=== PATIENT | male | born 1945 | race Caucasian/White ===

== ENCOUNTER → 2017-02-25 | Outpatient (CLI) | payer BC ==
[~2017-02-25] MED LIST: ATEN25TA PO; GLC500 PO; LISI20TA3 PO; MECL1TAB42 PO; SITA100T3 PO; WARF7.5T PO; meclizine
[2017-02-25 12:51] VITALS: BP 100/48; PULSE 54; TEMP 36.9; O2SAT 96
--- NOTE | 2017-02-26 08:05 | Radiation Oncology Follow-Up ---
Radiation Oncology Follow-Up Date of Visit Feb 25, 2017. Reason For Visit Annual follow-up Radiation Completion Date 05/07/2006 Diagnosis (1) Prostate cancer Status: Resolved Onset Date: ~ 2002 Permanent Comment: Adenocarcinoma prostate, presenting PSA 4, clinical stage T2 Status post biopsies revealing Neto 3+3 Status post prostatectomy, pathologic stage [id number], Neto score of 2002 Rising PSA Status post 4 months of hormonal suppression Status post completion of salvage radiation utilizing IMRT completed 05/07/2006 Last Edited By: Poonam Hartman on Jan 31, 2015 17:01 Interim History He is been doing well from urinary standpoint. Today he gave an AUA score 1. He completed and expanded prostate cancer index composite for clinical practice and gave a score of 0 of 12 in urinary incontinence symptoms. He gave a score of 0 of 12 and urinary irritation symptoms. He gave a score of one of 12 in bowel symptoms. He gave a score of 4 of 12 and sexual symptoms. He gave a score of one of 12 and hormonal vitality symptoms. His total was 5 of 60. Last year he had a PSA at [facility] in [place]. That was found to be 0.3 on 02/20/2016. He continues to have issues with periodic lightheadedness. His followed by his family physician. Allergies Coded Allergies: Latex1 -Allergic Contact Dermititis (Verified Allergy, Mild, ITCHES IF POWDER GLOVES ARE USED, 06/30/11) Penicillins (Verified Allergy, Unknown, 09/21/09) Home Medications Scheduled Atenolol (Tenormin), 25 MG PO QAM Lisinopril (Prinivil), 20 MG PO DAILY Metformin Hcl (Glucophage *), 2 TAB PO BIDM Sitagliptin Phosphate (Januvia), 100 MG PO QAM Warfarin Sodium (Coumadin), 5.5 MG PO DIRECTED Scheduled PRN Meclizine Hcl (Meclizine Hcl), 1 TAB PO TID PRN for Dizziness or Vertigo Review of Systems Gastrointestinal: Symptoms: WNL, Diarrhea GI Comments: Diarrhea last 6 months - attributes to metformin Oral: Symptoms: No Problems Respiratory: Symptoms: WNL Urinary: Symptoms: WNL Skin: Symptoms: No Problems Physical Exam Vital Signs Date Time Temp Pulse Resp B/P (MAP) Pulse Ox O2 Delivery O2 Flow Rate FiO2 02/25/17 12:51 36.9 54 16 100/48 96 Fatigue: None General Appearance: no apparent distress Eyes: normal inspection, EOMI ENT: normal ENT inspection, hearing grossly normal Neck: no adenopathy Respiratory/Chest: lungs clear, no respiratory distress, no accessory muscle use Cardiovascular: regular rate, rhythm, no gallop, no murmur Abdomen: non tender, soft, no organomegaly Anal / Rectum: Normal sphincter tone. Prostate bed is flat. No rectal masses and no rectal bleeding. Extremities: no pedal edema Neurologic/Psychiatric: no motor/sensory deficits, alert, normal mood/affect Skin: warm/dry Laboratory Studies Test 02/25/17 13:33 Prostate Specific Antigen 0.485 ng/ml (0.000-4.000) Assessment & Plan Plan: A PSA was drawn today prior to examination. The patient will be notified as to results. His blood pressure was rechecked and was 150/73. He will see his family physician in regards to blood pressure fluctuations. He'll check his pressures at home. The PSA was found a 0.485. This is increased since last year. This showed minimal slow increase. This was reviewed with Dr. Camacho and feels that he can continue to be followed annually. He'll continue regular follow-up with his primary care physician and piercer. Total Time In Follow-Up I spent 25 minutes speaking to the patient performing examination. I spent 15 minutes reviewing information in completing this note. Copy To Dr. Andrade
== END | disposition home or self-care (01) ==
LOC: C.ONC 12:16
PROVIDERS: ATTEND Physician Assistant Medical
DX: Z08 Encounter for follow-up examination after completed treatment for malignant neoplasm (principal); Z92.3 Personal history of irradiation; Z85.46 Personal history of malignant neoplasm of prostate

== ENCOUNTER 2022-09-23 15:11 | Observation (INO) ==
--- NOTE | 2022-09-23 15:35 | ED Triage Note ---
Date of Service September 23, 2022 History of Present Illness This patient was briefly evaluated while in triage. An abbreviated physical exam was performed. This patient is a 76-year-old Male with past medical history of HTN, lipids, afib on Eliquis, DM who presents to the ED for evaluation of chest fullness/heaviness, across entire chest denies pain, started a week ago denies SOB worse with activity/exertion +LE edema compliant with medications Physical Exam GENERAL: NAD CARDIOVASCULAR: RRR RESPIRATORY: CTA ABDOMEN: BS x 4. Nontender to palpation. Initial orders for labs and / or imaging were placed and patient was placed in the waiting area until a bed is available. Please see further documentation for the full ED course.
--- NOTE | 2022-09-23 16:21 | XRay Report ---
XR chest 1V portable CLINICAL HISTORY: Chest tightness/heaviness COMPARISON STUDY: Chest radiograph May 13, 2022. FINDINGS: Several old, healed right-sided rib fractures are incidentally noted. Lung volumes are norm al. Lungs are clear. There is no pneumothorax or pleural effusion. Mild cardiomegaly. Mediastinal con tours are normal. There is no evidence for pulmonary edema. IMPRESSION: No acute cardiopulmonary findings. ACT 112: Negative or not required by law. Electronically signed by: Kel Juarez M.D. 09/23/2022 4:20 PM
[2022-09-23 16:38] LABS: Basophils # (auto) 0.04 K/uL (0-0.2); Basophils % (auto) 1.1 %; Eosinophils # (auto) 0.27 K/uL (0-0.50); Eosinophils % (auto) 7.3 %; Hematocrit (blood only) 37.8 % (42.0-52.0); Hemoglobin 12.9 g/dl (14.0-18.0); Lymphocytes # (auto) 0.98 K/uL (1.2-3.4); Lymphocytes % (auto) 26.5 %; Mean Corpuscular Hemoglobin 31.5 pg (25.0-34.0); Mean Corpuscular Hgb Conc 34.1 g/dL (32.0-36.0); Mean Corpuscular Volume 92.4 fL (80.0-100.0); Mean Platelet Volume 10.2 fL (9.4-12.4); Monocytes # (auto) 0.48 K/uL (0.11-0.59); Neutrophils # (auto) 1.93 K/uL (1.40-6.50); Neutrophils % (auto) 52.1 %; Platelet Count 135 K/uL (130-400); RDW Coefficient of Variation 13.2 % (11.5-14.5); RDW Standard Deviation 44.5 fL (36.4-46.3); Red Blood Count 4.09 M/uL (4.70-6.10)
[2022-09-23 16:56] LABS: Albumin Globulin Ratio 1.3 (0.9-2); Albumin Level 4.1 gm/dl (3.4-5.0); BUN Creatinine Ratio 17.2 (10-20); Bilirubin,Total 0.5 mg/dl (0.2-1.0); Creatinine Clr Calc Pharmacy 55.1 ml/min; Est GFR (African American) 63.5 ml/min; Est GFR (Non-African American) 54.8 ml/min; Globulin 3.2 gm/dl (2.5-4.0); Potassium 4.3 mmol/L (3.5-5.1); Total Protein 7.3 gm/dl (6.0-8.3)
[2022-09-23 17:01] LABS: Partial Thromboplastin Ratio 0.9; Partial Thromboplastin Time 23.9 Seconds (21.0-31.0); Prothrombin Time 11.1 Seconds (9.0-12.0); Troponin I High Sensitivity 5.3 pg/ml (0-20)
--- NOTE | 2022-09-23 17:18 | Emergency Department Note ---
Impression & Plan ZHONG (dyspnea on exertion), Chronic anticoagulation, PAF (paroxysmal atrial fibrillation), Diabetes mellitus ED Provider Note Provider: Percy Reyna MD DATE OF SERVICE: 09/23/2022 CHIEF COMPLAINT: Chest tightness, dyspnea on exertion HISTORY OF PRESENT ILLNESS: Patient is a 76-year-old gentleman history of diabetes, prostate cancer, paroxysmal atrial fibrillation on Eliquis, and CKD presenting here today reporting over the past week or so. Denies visible pain. Denies shortness of breath at rest but some shortness of breath with exertion with a little bit of increase swelling of the legs. Patient states it feels similar to when he has had cardiac chemical stress test in the past and that sensation. Denies a history of cardiac stents. Has been on antibiotics related to tongue and throat infection states this has not improved much and has a bit of a sore on the left posterior tongue. Denies lightheadedness or palpitations. Follows with Dr. Quintero of cardiology and states been sometime since he had any cardiac stress testing. PAST MEDICAL HISTORY: As noted above MEDICATIONS: Reviewed home medications includes Eliquis and states compliance. SOCIAL HISTORY: Non-smoker, lives at home PHYSICAL EXAM: GENERAL: alert and oriented in no acute distress on stretcher Head: normocephalic and atraumatic EYES: No injection, discharge or icterus. NECK: Trachea midline. ENT: Mucous membranes pink and moist. Pharynx without erythema or exudate. LUNGS: Airway patent. No retractions. Breath sounds clear with good air entry bilaterally. HEART: Regular rate and rhythm. No chest wall tenderness ABDOMEN: Soft and non-tender, without guarding or rebound. SKIN: Acyanotic, warm, dry, without rashes EXTREMITIES: Without swelling, tenderness or deformity NEUROLOGICAL: No focal deficits. No aphasia. No facial droop or slurred speech. Normal strength and tone in the extremities. Sensation to gross touch normal. Ambulatory. EK bpm sinus rhythm with PAC & Right bundle branch block noted. No acute ST segment elevation or significant depression. QTc 432 CONTINUOUS CARDIAC MONITORING: was ordered and showed a heart rate of 60s-80s bpm in sinus rhythm with PACs Patient's laboratory studies and imaging reviewed. Differential includes Cardiac ischemia, aortic dissection, pulmonary embolism, pneumothorax, pneumonia, pericarditis, myocarditis, esophageal rupture, GERD, cholecystitis, pancreatitis, musculoskeletal, as well as other pathologies. IMPRESSION/MEDICAL DECISION MAKING: Patient with some exertional shortness of breath as well as chest tightness. Us e of Eliquis lowers my suspicion for VTE. A little bit of leg swelling but does not appear grossly fluid overloaded. Denies trauma or significant recent travel. Patient's blood work completed here with slight leukopenia and slight anemia. No significant severe electrolyte abnormality or signs of acute renal dysfunction. No evidence hepatitis based on labs. Does not seem consistent with pancreatitis. High sensitivity troponin completed here within normal limits at 5. The exertional component to his symptoms are concerning however. Chest x-ray per report and my review without significant abnormality such as pneumonia or pulmonary edema. Discussed with him and his at bedside the f indings his moderate risk heart score. Shared decision making discussed with the hospitalist here for further observation and further cardiac evaluation. DIAGNOSIS: Dyspnea on exertion, long-term anticoagulation for atrial fibrillation DISPOSITION: Hospitalist will evaluate Patient was agreeable with this plan. Past Med/Surg History Medical History Atrial fibrillation follows with Dr. Quintero; on Eliquis Carotid stenosis last ultrasound approx 8 years ago [facility] Chronic renal insufficiency DM type 2 (diabetes mellitus, type 2) History of prostate cancer dx 5-7 years ago; sx + radiation Hypertension Osteoarthritis Spinal stenosis Surgical History History of cardiac cath > 10 years ago - [facility] - no stents History of cholecystectomy History of colonoscopy History of left hip replacement History of left knee replacement History of lumbar surgery History of open reduction and internal fixation (ORIF) procedure LLE History of prostate biopsy History of prostatectomy History of right cataract extraction History of right hip replacement Family History Other No family history of adverse response to anesthesia Social History Smoking Status: Never smoker Second Hand Exposure: No; Hx Alcohol Use: No Hx Substance Use: No Preferred Language: Welsh Communication Ability: Effective Parts Department Manager Required: No Beliefs That Will Affect Care: None Current Living Situation: Spouse Feels Safe at Home: Yes Assistive Devices: Glasses Allergies Allergies Allergy/AdvReac Type Severity Reaction Status Date / Time Penicillins Allergy Intermediate jaundice Verified 09/23/22 17:40 latex Allergy Mild ITCHY IF Verified 09/23/22 17:40 POWDER GLOVES ARE USED - rash Home Meds Home Medications Medication Instructions Recorded Confirmed carvedilol 3.125 mg tablet 3.125 mg PO BID 09/23/22 09/23/22 doxycycline hyclate 100 mg capsule 100 mg PO BID 09/23/22 09/23/22 lisinopril 10 mg tablet 10 mg PO DAILY 09/23/22 09/23/22 metformin 500 mg tablet,extended 500 mg PO BID 09/23/22 09/23/22 release 24 hr Previous Rx's Medication Instructions Recorded apixaban 5 mg tablet (Eliquis) 5 mg PO BID #180 tabs 06/27/22 Results & Data (ED) Vital Signs Vital Signs - 24 hr 09/23/22 15:31 09/23/22 17:17 09/23/22 17:17 Temperature 36.6 C Temperature Source Temporal Artery Scan Pulse Rate 60 Pulse Rate [Apical] 61 Pulse Rhythm Regular Respiratory Rate 18 18 Respiratory Effort / Characteristics Non-Labored Spontaneous Respiratory Depth Normal Blood Pressure 182/92 H Blood Pressure [Left Arm] 188/92 H Blood Pressure Mean 122 Blood Pressure Mean [Left Arm] 124 Blood Pressure Position [Left Arm] Pulse Oximetry 98 96 99 Oxygen Delivery Method Room Air Room Air Room Air Sepsis Recent Fever Within 48 Hours No Sepsis New/Unexplained Change in Mental Status No Sepsis Action Taken by Nursing No Action Required 09/23/22 17:19 09/23/22 19:42 Temperature Temperature Source Pulse Rate Pulse Rate [Apical] 63 Pulse Rhythm Respiratory Rate 18 Respiratory Effort / Characteristics Respiratory Depth Blood Pressure Blood Pressure [Left Arm] 156/84 H Blood Pressure Mean Blood Pressure Mean [Left Arm] 108 Blood Pressure Position [Left Arm] Lying Pulse Oximetry 99 99 Oxygen Delivery Method Room Air Room Air Sepsis Recent Fever Within 48 Hours Sepsis New/Unexplained Change in Mental Status Sepsis Action Taken by Nursing Laboratory Data 09/23/22 16:11 09/23/22 16:11 Lab Results 09/23/22 09/23/22 09/23/22 Range/Units 16:11 16:11 16:11 WBC 3.70 L (4.8-10.8) K/ul RBC 4.09 L (4.70-6.10) M/uL Hgb 12.9 L (14.0-18.0) g/dl Hct 37.8 L (42.0-52.0) % MCV 92.4 (80.0-100.0) fL MCH 31.5 (25.0-34.0) pg MCHC 34.1 (32.0-36.0) g/dL RDW Std Deviation 44.5 (36.4-46.3) fL RDW Coeff of Raf 13.2 (11.5-14.5) % Plt Count 135 (130-400) K/uL MPV 10.2 (9.4-12.4) fL Immature Gran % (Auto) 0.0 % Neut % (Auto) 52.1 % Lymph % (Auto) 26.5 % Williams % (Auto) 13.0 % Eos % (Auto) 7.3 % Baso % (Auto) 1.1 % Neut # (Auto) 1.93 (1.40-6.50) K/uL Lymph # (Auto) 0.98 L (1.2-3.4) K/uL Williams # (Auto) 0.48 (0.11-0.59) K/uL Eos # (Auto) 0.27 (0-0.50) K/uL Baso # (Auto) 0.04 (0-0.2) K/uL Immature Gran # (Auto) 0.00 L (0.01-0.20) K/uL PT 11.1 (9.0-12.0) Seconds INR 1.0 (0.9-1.1) APTT 23.9 (21.0-31.0) Seconds PTT Ratio 0.9 Sodium 139 (136-145) mmol/L Potassium 4.3 (3.5-5.1) mmol/L Chloride 109 H (98-107) mmol/L Carbon Dioxide 28 (21-32) mmol/L Anion Gap 2 L (3-11) BUN 22 (6-23) mg/dl Creatinine 1.28 (0.6-1.4) mg/dl Est Cr Clr Drug Dosing 55.1 ml/min Est GFR ( Amer) 63.5 ml/min Est GFR (Non-Af Amer) 54.8 ml/min BUN/Creatinine Ratio 17.2 (10-20) Glucose 116 H (70-99(Fasting)) mg/dl POC Glucose (70-99) mg/dl Calcium 10.0 (8.5-10.1) mg/dl Total Bilirubin 0.5 (0.2-1.0) mg/dl AST 20 (13-39) U/L ALT 11 (7-52) U/L Alkaline Phosphatase 68 (34-104) U/L Troponin I High Sens 5.3 (0-20) pg/ml Total Protein 7.3 (6.0-8.3) gm/dl Albumin 4.1 (3.4-5.0) gm/dl Globulin 3.2 (2.5-4.0) gm/dl Albumin/Globulin Ratio 1.3 (0.9-2) SARS-CoV-2, RNA, NAAT (NEGATIVE) 09/23/22 09/23/22 Range/Units 20:37 Unknown WBC (4.8-10.8) K/ul RBC (4.70-6.10) M/uL Hgb (14.0-18.0) g/dl Hct (42.0-52.0) % MCV (80.0-100.0) fL MCH (25.0-34.0) pg MCHC (32.0-36.0) g/dL RDW Std Deviation (36.4-46.3) fL RDW Coeff of Raf (11.5-14.5) % Plt Count (130-400) K/uL MPV (9.4-12.4) fL Immature Gran % (Auto) % Neut % (Auto) % Lymph % (Auto) % Williams % (Auto) % Eos % (Auto) % Baso % (Auto) % Neut # (Auto) (1.40-6.50) K/uL Lymph # (Auto) (1.2-3.4) K/uL Williams # (Auto) (0.11-0.59) K/uL Eos # (Auto) (0-0.50) K/uL Baso # (Auto) (0-0.2) K/uL Immature Gran # (Auto) (0.01-0.20) K/uL PT (9.0-12.0) Seconds INR (0.9-1.1) APTT (21.0-31.0) Seconds PTT Ratio Sodium (136-145) mmol/L Potassium (3.5-5.1) mmol/L Chloride (98-107) mmol/L Carbon Dioxide (21-32) mmol/L Anion Gap (3-11) BUN (6-23) mg/dl Creatinine (0.6-1.4) mg/dl Est Cr Clr Drug Dosing ml/min Est GFR ( Amer) ml/min Est GFR (Non-Af Amer) ml/min BUN/Creatinine Ratio (10-20) Glucose (70-99(Fasting)) mg/dl POC Glucose 108 H (70-99) mg/dl Calcium (8.5-10.1) mg/dl Total Bilirubin (0.2-1.0) mg/dl AST (13-39) U/L ALT (7-52) U/L Alkaline Phosphatase (34-104) U/L Troponin I High Sens (0-20) pg/ml Total Protein (6.0-8.3) gm/dl Albumin (3.4-5.0) gm/dl Globulin (2.5-4.0) gm/dl Albumin/Globulin Ratio (0.9-2) SARS-CoV-2, RNA, NAAT NEGATIVE (NEGATIVE) Imaging Data Radiologist's Impression: Chest X-Ray 09/23/22 15:36 XR chest 1V portable CLINICAL HISTORY: Chest tightness/heaviness COMPARISON STUDY: Chest radiograph May 13, 2022. FINDINGS: Several old, healed right-sided rib fractures are incidentally noted. Lung volumes are normal. Lungs are clear. There is no pneumothorax or pleural effusion. Mild cardiomegaly. Mediastinal contours are normal. There is no evidence for pulmonary edema. IMPRESSION: No acute cardiopulmonary findings. ACT 112: Negative or not required by law. Electronically signed by: Kel Juarez M.D. 09/23/2022 4:20 PM Discharge Plan Visit Data Chief Complaint: Cardiac Assessment Stated Complaint: CHEST TIGHTNESS/FULLNESS ED Provider: Percy Reyna Discharge Problem: ZHONG (dyspnea on exertion), Chronic anticoagulation, PAF (paroxysmal atrial fibrillation), Diabetes mellitus Patient Disposition: Being Evaluated by Hospitalist Forms Stand Alone Forms: [facility] [employer] Prescriptions Prescriptions: No Action Eliquis 5 mg tablet 5 mg PO BID Qty: 180 3RF doxycycline hyclate 100 mg capsule 100 mg PO BID Rx Instructions: STARTED 09/19/22 FOR 10 DAYS. carvedilol 3.125 mg tablet 3.125 mg PO BID lisinopril 10 mg tablet 10 mg PO DAILY metformin 500 mg tablet extended release 24 hr 500 mg PO BID Referrals Referrals: Lissett Portillo PA-C [Primary Care Provider] -
--- NOTE | 2022-09-23 19:08 | History & Physical Report ---
Date of Service September 23, 2022 Assessment & Plan (1) ZHONG (dyspnea on exertion): Plan: -Admit to med tele -The patient is currently afebrile, hemodynamically stable, and stable on RA -The patient's history of his recent symptoms is concerned for possible ischemia with exertion, he is currently asymptomatic at rest -Initial high sensitivity trop is WNL and his ECG is without acute ST segment or T-wave changes -Will repeat another high sensitivity trop STAT and then monitor q6h overnight, monitor on tele and pulse oximetry -Will obtain TTE tomorrow for further evaluation -Cardiology consult placed for assistance with continue workup and assessment -AM CBC and BMP (2) Tongue abnormality: Plan: -Patient noted to have a small, white lesion on the lateral aspect of his tongue -The lesion does not present or appear like that of leukoplakia or a fungal infection -It is likely an aphthous ulcer which appears to be improving, continue to monitor for now (3) Diabetes mellitus: Plan: -Hold metformin -Monitor BSG ACHS , goal range is 110-140 -Will start with lantus, 5 units BID, correction factor of 45 and carb ratio of 16 -DMII diet -Adjust regimen as needed (4) PAF (paroxysmal atrial fibrillation): Plan: -Stable -Continue carvedilol and eliquis (5) Hyperlipidemia: Plan: -Statin intolerant (6) Hypertension: Plan: -Stable -Continue lisinopril and carvedilol Plan The patient was discussed with Dr. Laureano at the time of the admisison History of Present Illness Chief Complaint: ZHONG/chest discomfort Primary Care Provider: Lissett Lott is a 76 year old male with a PMH significant for paroxysmal afib on eliquis, HTN, hyperlipidemia, intolerance to statins, DM II, prostate cancer in 2002, and PVD who presented to the [facility] ED on 09/23/22 for ZHONG/chest discomfort on exertion. In the ED the patient was found to be afebrile, hemodynamically stable and stable on RA. Labs were remarkable for a CBC with WBC of 3.70, stable Hgb of 12.9, cr of 1.28 (appears to be his baseline), chloride of 109 otherwise stable electrolytes, AG of 2, initial high sensitivity trop of 5.3 and covid negative. Chest xray was read as "No acute cardiopulmonary findings.". At the time of the exam the patient was resting in bed in no acute distress. He states over the past few weeks he has started to noticed an odd feeling in his chest with exertion. It's difficult for him to explain but he states it feels the same as when he had a stress echo completed years ago. He describes it as almost a warm sensation and stays in the substernal region, it does not radiate. He states that the sedation resolves with rest and has not occurred at rest. He follows with Dr. Quintero and called to schedule an appointment at the [place] office yesterday. There was a miscommunication and the appointment was in [place] so he was unable to make it. He states that he had a stress echo "years ago" but denies any previous heart attacks or previous stent placements. When asked why he was placed on Doxycycline he states that he started to experience a sore throat, a white growth on the right side of his tongue, and swollen "glands" in the submandibular region. He went to the acute care center in [place] where he had a negative strep test. They started him on the Doxycycline at that time and he feels as though his symptoms has slightly improved since then. He denies recent fevers, chills, changes in vision, hearing, taste, and smell, current chest pain, SOB, cough, abdominal pain, nausea, vomiting, dysuria, hematuria, and recent trauma. We discussed code status, he wishes to be a full code. He would want his to make decisions for him if he could not make them himself. Please refer to Dr. Laureano's attestation for any changes to the treatment plan. Allergies Allergy/AdvReac Type Severity Reaction Status Date / Time Penicillins Allergy Intermediate jaundice Verified 09/23/22 17:40 latex Allergy Mild ITCHY IF Verified 09/23/22 17:40 POWDER GLOVES ARE USED - rash Home Medications Medication Instructions Recorded Confirmed Type apixaban 5 mg tablet (Eliquis) 5 mg PO BID #180 tabs 06/27/22 09/23/22 Rx carvedilol 3.125 mg tablet 3.125 mg PO BID 09/23/22 09/23/22 History doxycycline hyclate 100 mg capsule 100 mg PO BID 09/23/22 09/23/22 History lisinopril 10 mg tablet 10 mg PO DAILY 09/23/22 09/23/22 History metformin 500 mg tablet,extended 500 mg PO BID 09/23/22 09/23/22 History release 24 hr Past Med/Surg History Medical History Atrial fibrillation follows with Dr. Quintero; on Eliquis Carotid stenosis last ultrasound approx 8 years ago [facility] Chronic renal insufficiency DM type 2 (diabetes mellitus, type 2) History of prostate cancer dx 5-7 years ago; sx + radiation Hypertension Osteoarthritis Spinal stenosis Surgical History History of cardiac cath > 10 years ago - [facility] - no stents History of cholecystectomy History of colonoscopy History of left hip replacement History of left knee replacement History of lumbar surgery History of open reduction and internal fixation (ORIF) procedure LLE History of prostate biopsy History of prostatectomy History of right cataract extraction History of right hip replacement Family History Other No family history of adverse response to anesthesia Social History Smoking Status: Never smoker Second Hand Exposure: No; Hx Alcohol Use: No Hx Substance Use: No Preferred Language: Venezuelan Communication Ability: Effective Soup Person Required: No Beliefs That Will Affect Care: None Current Living Situation: Spouse Current Living Situation Comment: with Other Information That Helps Us Care for You: No Feels Safe at Home: Yes Safety Concerns: Feels Safe At This Time Assistive Devices: None Assistive Devices Comment: reading glasses Review of Systems Review of Systems: Denies current fever, chills, headache, changes in vision, hearing, taste, and smell, chest pain, SOB, cough, abdominal pain, nausea, vomiting, diarrhea, hematemesis, melena, dysuria, hematuria, and recent falls. All systems have been reviewed and are otherwise negative. Physical Exam Physical Exam: Physical Exam: General: In no acute distress, stated age, well-nourished, good hygiene HEENT: Normocephalic, atraumatic, no scleral icterus, pupils around round, symmetrical, and reactive to light, moist mucus membranes, patient is without erythema in the oropharynx, small white lesion noted on the right/lateral aspect of the tongue, patient noted to have enlarged submandibular lymph nodes, trachea midline, no thyromegaly Chest/Pulm: No respiratory distress, symmetrical chest expansion, clear breath sounds throughout Cardiac: RRR, no murmurs noted Abdomen: Negative for ascites and bruising, normoactive bowel sounds, soft, non-tender to palpation throughout Musculoskeletal: Symmetrical and without signs of acute trauma, upper and lower extremities with full ROM, no atrophy, spasticity, or flaccidity Extremities: Radial, dorsalis pedis, and posterior tibial pulses are intact and symmetrical, no edema noted in the BL LE's Skin: Warm, dry, no rashes , lesions, or scars noted Neuro: Alert and oriented to person, place, month, year, and president, no focal defects, CN II-XII tested and intact, Psych: No acute distress, calm and cooperative during the exam Results & Data Results & Data ([facility]) Vital Signs (Past 12 Hours) Vital Signs Temp Pulse Pulse Resp BP BP Pulse Ox 09/23/22 17:19 99 09/23/22 17:17 61 18 188/92 H 99 09/23/22 17:17 96 09/23/22 15:31 36.6 C 60 18 182/92 H 98 O2 Del Method 09/23/22 17:19 Room Air 09/23/22 17:17 Room Air 09/23/22 17:17 Room Air 09/23/22 15:31 Room Air Laboratory Results Abnormal lab results 09/23/22 09/23/22 Range/Units 16:11 16:11 WBC 3.70 L (4.8-10.8) K/ul RBC 4.09 L (4.70-6.10) M/uL Hgb 12.9 L (14.0-18.0) g/dl Hct 37.8 L (42.0-52.0) % Lymph # (Auto) 0.98 L (1.2-3.4) K/uL Immature Gran # (Auto) 0.00 L (0.01-0.20) K/uL Chloride 109 H (98-107) mmol/L Anion Gap 2 L (3-11) Glucose 116 H (70-99(Fasting)) mg/dl Diagnostic Findings Chest X-Ray 02/07/23 15:36 XR chest 1V portable CLINICAL HISTORY: Chest tightness/heaviness COMPARISON STUDY: Chest radiograph May 13, 2022. FINDINGS: Several old, healed right-sided rib fractures are incidentally noted. Lung volumes are normal. Lungs are clear. There is no pneumothorax or pleural effusion. Mild cardiomegaly. Mediastinal contours are normal. There is no evidence for pulmonary edema. IMPRESSION: No acute cardiopulmonary findings. ACT 112: Negative or not required by law. Electronically signed by: Kel Juarez M.D. 09/23/2022 4:20 PM ECG Additional Comments: Sinus rhythm with Premature atrial complexes with Aberrant conduction Right bundle branch block Abnormal ECG When compared with ECG of 05-NOV-2012 14:33, Aberrant conduction is now Present Right bundle branch block is now Present Code Status & VTE Plan Code Status Full code VTE Prophylaxis Plan VTE Prophylaxis will be ordered: Yes Supervising Physician Co-Signing Physician Notes Patient seen and examined at time of admission, chart reviewed, case discussed with LILIA Curran and I agree with the assessment and plan as documented above. In brief, patient is a 76yo male presenting with ZHONG and chest discomfort noted on exertion. Symptoms have been ongoing for at least a week. He describes the sensation as "tightness". Presently feels well with no complaints On exam he is afebrile, HD stable, NAD Skin - intact, no rashes or lesions HEENT - MMM, Neck supple Heart - +S1/S2, regular, no m/r/g, no reproducible chest wall pain Lungs - CTA Abd - soft, NT/ND Ext - warm, well perfused, no clubbing/cyanosis or edema Labs and images reviewed Trop=5.3 EKG with no acute ischemic changes Assessment/Plan - 76yo male with history of PAF on Eliquis, HTN, HLP, DM -Admit to medical with telemetry -Monitor troponin -Cardiology consultation appreciated -Remainder of chronic medical conditions as above PG Care Time/CCT Total # of Minutes Spent Total Time Spent with Patient: Total time spent is greater than 50% in coordination of care (as documented) at patient's floor/unit and/or counseling patient: Coding [place] [address] INT INP/OBS CARE 3/75MIN Patient Type Established Medical Decision Making High Complexity Diagnoses ZHONG (dyspnea on exertion) R06.09 Tongue abnormality Q38.3 Diabetes mellitus E11.9 PAF (paroxysmal atrial fibrillation) I48.0 Hyperlipidemia E78.5 Hypertension I10
[2022-09-23] MEDS ORDERED: CARBOHYDRATES FOR HYPOGLYCEMIA PO PRN (19:20)
[2022-09-23] MEDS ORDERED: GLUCAGON FOR INJ 1 MG VIAL SQ PRN (19:20)
[2022-09-23] MEDS ORDERED: GLUCOSE 10 TAB/TUBE PO PRN (19:20)
[2022-09-23] MEDS ORDERED: DEXTROSE 50% 50 ML SYRINGE IV PRN (19:20)
[2022-09-23] MEDS ORDERED: GLUCOSE 40% GEL 15 GM TUBE PO PRN (19:20)
[2022-09-23] MEDS: LANTUS PER UNIT CHARGE SQ SCH (21:24)
[2022-09-23] MEDS: INSULIN ASPART PER UNIT SC SCH (21:24)
[2022-09-23] MEDS: carvediloL 3.125 MG TAB PO SCH (23:30)
[2022-09-23] MEDS: APIXABAN 5 MG TABLET PO SCH (23:30)
[2022-09-24 07:04] LABS: Hematocrit (blood only) 35.8 % (42.0-52.0); Hemoglobin 12.2 g/dl (14.0-18.0); Mean Corpuscular Hemoglobin 31.2 pg (25.0-34.0); Mean Corpuscular Hgb Conc 34.1 g/dL (32.0-36.0); Mean Corpuscular Volume 91.6 fL (80.0-100.0); Mean Platelet Volume 10.4 fL (9.4-12.4); Platelet Count 128 K/uL (130-400); RDW Coefficient of Variation 13.2 % (11.5-14.5); RDW Standard Deviation 43.6 fL (36.4-46.3); Red Blood Count 3.91 M/uL (4.70-6.10); White Blood Count 3.49 K/ul (4.8-10.8)
[2022-09-24 07:26] LABS: BUN Creatinine Ratio 18.2 (10-20); Calcium 9.6 mg/dl (8.5-10.1); Creatinine Clr Calc Pharmacy 58.1 ml/min; Est GFR (African American) 67.9 ml/min; Est GFR (Non-African American) 58.6 ml/min
[2022-09-24] MEDS: carvediloL 3.125 MG TAB PO SCH ×2 (07:29→21:00)
[2022-09-24 07:30] LABS: INR 1.1 (0.9-1.1); Prothrombin Time 11.7 Seconds (9.0-12.0)
[2022-09-24] MEDS: APIXABAN 5 MG TABLET PO SCH (07:30)
[2022-09-24] MEDS: lisinopril 10 MG TAB PO SCH (07:31)
--- NOTE | 2022-09-24 08:19 | XCELERA ---
[id number] \\[id number]
--- NOTE | 2022-09-24 08:36 | Electrocardiogram Report ---
Test Reason : Blood Pressure : / mmHG Vent. Rate : 071 BPM Atrial Rate : 071 BPM P-R Int : 152 ms QRS Dur : 132 ms QT Int : 398 ms P-R-T Axes : 017 -05 004 degrees QTc Int : 432 ms Sinus rhythm with Premature atrial complexes with Aberrant conduction Right bundle branch block Abnormal ECG When compared with ECG of 05-NOV-2012 14:33, Aberrant conduction is now Present Right bundle branch block is now Present Confirmed by Arjun Foster ([id number]) on 09/24/2022 8:36:03 AM Referred By: Confirmed By:Arjun Foster
[2022-09-24] MEDS: INSULIN ASPART PER UNIT SC SCH ×3 (09:14→17:22)
[2022-09-24] MEDS: LANTUS PER UNIT CHARGE SQ SCH (09:18)
[2022-09-24] MEDS ORDERED: ATROPINE SULFATE 0.1 MG/ML 10ML SYR IV ONE (11:00)
[2022-09-24] MEDS ORDERED: DOBUTamine HCL 12.5 MG/ML 20 ML VIAL IV ONE (11:00)
[2022-09-24] MEDS ORDERED: METOPROLOL TARTRATE 1 MG/ML VIAL IV ONE ×2 (11:00→11:24)
[2022-09-24] MEDS ORDERED: NITROGLYCERIN SL 0.4 MG/TAB TAB ONE (11:01)
[2022-09-24] MEDS ORDERED: ADENOSINE IV SOLN 3 MG/ML 2 ML VIAL IV ONE (11:24)
--- NOTE | 2022-09-24 13:54 | XCELERA ---
[id number] \\[id number]
--- NOTE | 2022-09-24 14:13 | Electrocardiogram Report ---
Test Reason : Blood Pressure : / mmHG Vent. Rate : 056 BPM Atrial Rate : 056 BPM P-R Int : 168 ms QRS Dur : 148 ms QT Int : 426 ms P-R-T Axes : 023 -19 -12 degrees QTc Int : 411 ms Sinus bradycardia Right bundle branch block Abnormal ECG When compared with ECG of 23-SEP-2022 16:07, Aberrant conduction is no longer Present Confirmed by Arjun Foster ([id number]) on 09/24/2022 2:12:52 PM Referred By: REFERRED SELF Confirmed By:Arjun Foster
[2022-09-24] MEDS ORDERED: NITROGLYCERIN SL 0.4 MG/TAB TAB SL PRN (14:51)
--- NOTE | 2022-09-24 15:23 | Hospitalist Progress Note ---
Date of Service September 24, 2022 Assessment & Plan (1) ZHONG (dyspnea on exertion): Plan: This appears to be due to crescendo angina. Cardiology consultation appreciated . Stress test today compromised by sustained ventricular tachycardia. He remains on Eliquis. Topical nitrates have been ordered. Sublingual nitroglycerin as needed. Awaiting cardiology recommendations regarding catheterization this admission (2) Tongue abnormality: Plan: Patient noted to have a small, white lesion on the lateral aspect of his tongue . Will need further outpatient monitoring (3) Diabetes mellitus: Plan: Holding metformin . ADA diet. Sliding scale coverage. Basal Lantus for now (4) PAF (paroxysmal atrial fibrillation): Plan: Currently in normal sinus rhythm. He is on Eliquis. Continue medications (5) Hyperlipidemia: Plan: Statin intolerant (6) Hypertension: Plan: Controlled. Currently on lisinopril and carvedilol (7) Crescendo angina: Plan: Stress test today compromised by sustained ventricular tachycardia. History is consistent with crescendo angina. Topical nitrates applied. Use sublingual nitroglycerin as needed. Continue other medications. Await cardiology recommendations regarding heart catheterization this admission. Plan Anticipate eventual discharge to home unless he needs transferred for coronary bypass procedure. Admission and Anticipated Discharge Date Admission Date: September 23, 2022 Subjective Alert and oriented. No current symptoms. He had sustained ventricular tachycardia during the stress test today. Symptoms are consistent with cresc endo angina. Topical nitrates ordered along with sublingual nitroglycerin as needed. He is on Eliquis amongst other medications. Awaiting cardiology recommendations regarding heart catheterization Review of Systems Review of Systems: Constitutional-no fever or chills ENT-no blurred vision, no double vision, no epistaxis, no sore throat Respiratory-no cough, no wheezing, no shortness of breath Cardiac-chest discomfort occurs with minimal exertion while walking GI-no nausea, vomiting, diarrhea, melena, hematochezia -no urinary retention, no urinary incontinence, no dysuria, no hematuria Musculoskeletal-no joint pain, no muscle tenderness Skin-no bruising, no rashes, no pruritus Neuro-no isolated weakness, no paresthesia, no weakness Psych-no depression, no anxiety Physical Exam Physical Exam: General-alert and oriented x3, no fevers, no chills HEENT-head atraumatic and normocephalic, pupils equal and reactive to light, extraocular muscles intact Neck-no lymphadenopathy or thyromegaly, trachea midline Chest-clear to auscultation percussion. No rales wheezing or rhonchi Cardiac-regular rate and rhythm, normal S1 and S2 Abdomen-normal bowel sounds, nontender, no hepatosplenomegaly Extremities-no cyanosis, clubbing, or edema Neuro-cranial nerves II through XII intact, motor and sensory function within normal limits, strength symmetrical , no focal deficits Psych-normal affect, normal mood Results & Data Results & Data ([facility]) Vital Signs (Past 12 Hours) Vital Signs Temp Pulse Pulse Resp BP Pulse Ox O2 Del Method 09/24/22 05:57 56 L 09/24/22 12:00 36.7 C 57 L 18 135/75 100 Room Air 09/24/22 07:34 36.7 C 62 173/90 H 98 Room Air Laboratory Results 09/24/22 06:30 09/24/22 06:30 PG Care Time/CCT Total # of Minutes Spent Total Time Spent with Patient: Total time spent is greater than 50% in coordination of care (as documented) at patient's floor/unit and/or counseling patient: Coding Level of Care Code 35122 SUB INP/OBS CARE 3/50MIN Diagnoses ZHONG (dyspnea on exertion) R06.09 Tongue abnormality Q38.3 Diabetes mellitus E11.9 PAF (paroxysmal atrial fibrillation) I48.0 Hyperlipidemia E78.5 Hypertension I10 Crescendo angina I20.0
--- NOTE | 2022-09-24 15:59 | Cardiology Consultation ---
Date of Consultation September 24, 2022 Assessment & Plan (1) Chest pain syndrome: -description of discomfort has both typical and atypical features of angina pectoris. -dobutamine stress echocardiogram (recent TKR). (2) Hypertension: -adequate control on current regimen. (3) PAF (paroxysmal atrial fibrillation): -continue rate control and long-term anticoagulation. History of Present Illness Attending Physician: Eugene Smith MD History of Present Illness Mr. Mariee is a 76-year-old male admitted yesterday with a chest pain syndrome. This consultation was ordered to assistance cardiac management. Of note, the patient is well known to me from the outpatient setting. The patient was in his usual state of health until approximately 1 week ago. He began to note a warm and pressure sensation in the substernal region along with dyspnea with physical activity. There were no other associated symptoms such a nausea, vomiting, diaphoresis, or radiation of the discomfort. His symptoms would resolve within 1-2 minutes of rest. This discomfort was not always predictable. He never experienced any symptoms at rest. The patient does carry history of paroxysmal atrial fibrillation diagnosed back in March 2020. Has been maintained on rate control and long-term anticoagulation. Currently, patient is resting comfortably in bed without complaints. We have discussed need for stress testing. Past medical and surgical history 1. Paroxysmal atrial fibrillation-March 2020 2. Hypertension 3. Hypercholesterolemia-statin intolerant 4. Diabetes mellitus 5. TIA- 6. Chronic renal failure 7. Cerebrovascular disease 8. Prostate carcinoma -2009, XRT 9. Prostatectomy -2009, [facility] 10. Left THR-July 2020 11. Left TKR-2011 12. Right THR-2008 13. Cholecystectomy 14. Lumbar fusion -2006 15. Right TKR-March 2022 Social history and lives with his Their daughter lives close by Retired from the home Currently works for the [employer] in [place] No tobacco alcohol Family history Mother at 70 complications of diabetes Father's history is unknown His half brother has diabetes Review of systems A 10 review systems was negative except for that described above. Allergies Allergy/AdvReac Type Severity Reaction Status Date / Time Penicillins Allergy Intermediate jaundice Verified 09/23/22 17:40 latex Allergy Mild ITCHY IF Verified 09/23/22 17:40 POWDER GLOVES ARE USED - rash Home Medications Medication Instructions Recorded Confirmed Type apixaban 5 mg tablet (Eliquis) 5 mg PO BID #180 tabs 06/27/22 09/23/22 Rx carvedilol 3.125 mg tablet 3.125 mg PO BID 09/23/22 09/23/22 History doxycycline hyclate 100 mg capsule 100 mg PO BID 09/23/22 09/23/22 History lisinopril 10 mg tablet 10 mg PO DAILY 09/23/22 09/23/22 History metformin 500 mg tablet,extended 500 mg PO BID 09/23/22 09/23/22 History release 24 hr Patient History Medical History Atrial fibrillation follows with Dr. Quintero; on Eliquis Carotid stenosis last ultrasound approx 8 years ago [facility] Chronic renal insufficiency DM type 2 (diabetes mellitus, type 2) History of prostate cancer dx 5-7 years ago; sx + radiation Hypertension Osteoarthritis Spinal stenosis Surgical History History of cardiac cath > 10 years ago - [facility] - no stents History of cholecystectomy History of colonoscopy History of left hip replacement History of left knee replacement History of lumbar surgery History of open reduction and internal fixation (ORIF) procedure [facility]LE History of prostate biopsy History of prostatectomy History of right cataract extraction History of right hip replacement Family History Other No family history of adverse response to anesthesia Social History Smoking Status: Never smoker Second Hand Exposure: No; Hx Alcohol Use: No Hx Substance Use: No Preferred Language: Bulgarian Communication Ability: Effective Hardscape Foreman Required: No Beliefs That Will Affect Care: None Current Living Situation: Spouse Current Living Situation Comment: with Other Information That Helps Us Care for You: No Feels Safe at Home: Yes Safety Concerns: Feels Safe At This Time Assistive Devices: Glasses Assistive Devices Comment: reading glasses Physical Exam Physical Exam: In general this is a well-developed well-nourished white male in no acute distress. HEENT exam is negative. Neck is supple with full carotid upstrokes. There are no carotid bruits. Jugular venous pressure is flat at 90. There is no thyromegaly. Cardiovascular exam reveals a regular rhythm with a normal S1 and S2. No S3, S4, or murmurs are noted. Lungs are clear without rales, rhonchi, or wheezes. Abdomen is soft and nontender without bruits. Extremities reveal intact radial artery and posterior tibial pulses bilaterally. There is no peripheral edema. Results & Data ([facility]) Vital Signs (Past 12 Hours) Vital Signs Temp Pulse Pulse Resp BP Pulse Ox O2 Del Method 09/24/22 15:26 36.8 C 52 L 18 151/82 H 98 Room Air 09/24/22 05:57 56 L 09/24/22 12:00 36.7 C 57 L 18 135/75 100 Room Air 09/24/22 07:34 36.7 C 62 173/90 H 98 Room Air Laboratory Results CBC notes hemoglobin 12.2, hematocrit 35.8, white count 3.5, and platelet count [id number]. Electrolytes note a sodium of 139, potassium 4.0, chloride 109, bicarb 26, BUN 22, creatinine 1.2, glucose 117. Initial high sensitivity troponin was 5.3 with follow-up values of 4.8, 4.3, and 4.7. Diagnostic Findings EKG notes normal sinus rhythm and a right bundle branch block. Echocardiogram notes normal systolic function with ejection fraction of 65-70%. No wall motion abnormalities. Mild mitral regurgitation. Unchanged from study performed in October 2009. Chest x-ray shows cardiomegaly but no acute disease. PG Care Time/CCT Total # of Minutes Spent Total Time Spent with Patient: Total time spent is greater than 50% in coordination of care (as documented) at patient's floor/unit and/or counseling patient: Coding Level of Care Code 75373 INT INP/OBS CARE 3/75MIN Diagnoses Chest pain syndrome R07.9 Hypertension I10 PAF (paroxysmal atrial fibrillation) I48.0
[2022-09-24] MEDS: NITROGLYCERIN 2% OINTMENT 30GM TUBE EXT SCH ×2 (16:03→21:00)
[2022-09-25] MEDS: INSULIN ASPART PER UNIT SC SCH ×5 (00:56→21:15)
[2022-09-25] MEDS: NITROGLYCERIN 2% OINTMENT 30GM TUBE EXT SCH ×3 (03:20→16:45)
[2022-09-25] MEDS: carvediloL 3.125 MG TAB PO SCH ×2 (08:35→22:18)
[2022-09-25] MEDS: lisinopril 10 MG TAB PO SCH (10:45)
--- NOTE | 2022-09-25 12:52 | Hospitalist Progress Note ---
Date of Service September 25, 2022 Assessment & Plan (1) Crescendo angina: Plan: Appreciate cardiology consultation and recommendations. He had sustained ventricular tachycardia during stress testing yesterday, September 24. No recurrence since that time. Continue telemetry. Left heart catheterization later today. Continue current medical management (2) Tongue abnormality: Plan: We will need continued outpatient evaluation and follow-up (3) Diabetes mellitus: Plan: ADA diet. Basal insulin therapy. Sliding scale coverage as needed (4) Elevated serum cholesterol: Plan: Statin therapy (5) Peripheral vascular disease: Plan: No intervention at this time. Continue current medical management (6) Chronic anticoagulation: Plan: He takes Eliquis chronically. Currently on hold for upcoming heart catheterization (7) Statin intolerance: Plan: Aware (8) PAF (paroxysmal atrial fibrillation): Plan: Continue current medical management. Eliquis is temporarily on hold Plan To be determined by cardiac catheterization results. Admission and Anticipated Discharge Date Admission Date: September 23, 2022 Subjective Alert and oriented. No distress. No current chest pain. He is awaiting left heart catheterization later today, September 25 Review of Systems Review of Systems: Constitutional-no fever or chills ENT-no blurred vision, no double vision, no epistaxis, no sore throat Respiratory-no cough, no wheezing, no shortness of breath Cardiac-chest discomfort occurs with minimal exertion while walking GI-no nausea, vomiting, diarrhea, melena, hematochezia -no urinary retention, no urinary incontinence, no dysuria, no hematuria Musculoskeletal-no joint pain, no muscle tenderness Skin-no bruising, no rashes, no pruritus Neuro-no isolated weakness, no paresthesia, no weakness Psych-no depression, no anxiety Physical Exam Physical Exam: General-alert and oriented x3, no fevers, no chills HEENT-head atraumatic and normocephalic, pupils equal and reactive to light, extraocular muscles intact Neck-no lymphadenopathy or thyromegaly, trachea midline Chest-clear to auscultation percussion. No rales wheezing or rhonchi Cardiac-regular rate and rhythm, normal S1 and S2 Abdomen-normal bowel sounds, nontender, no hepatosplenomegaly Extremities-no cyanosis, clubbing, or edema Neuro-cranial nerves II through XII intact, motor and sensory function within normal limits, strength symmetrical , no focal deficits Psych-normal affect, normal mood Results & Data Results & Data ([facility]) Vital Signs (Past 12 Hours) Vital Signs Temp Pulse Pulse Resp BP Pulse Ox O2 Del Method 09/25/22 11:35 37.0 C 59 L 18 155/80 H 96 Room Air 09/25/22 07:44 36.6 C 58 L 18 127/72 95 Room Air 09/25/22 07:00 52 L 09/25/22 02:53 37.1 C 57 L 18 125/66 94 Room Air Laboratory Results 09/24/22 06:30 09/24/22 06:30 PG Care Time/CCT Total # of Minutes Spent Total Time Spent with Patient: Total time spent is greater than 50% in coordination of care (as documented) at patient's floor/unit and/or counseling patient: Coding Level of Care Code 01716 SUB INP/OBS CARE 3/50MIN Diagnoses Crescendo angina I20.0 Tongue abnormality Q38.3 Diabetes mellitus E11.9 Elevated serum cholesterol E78.9 Peripheral vascular disease I73.9 Chronic anticoagulation Z79.01 Statin intolerance Z78.9 PAF (paroxysmal atrial fibrillation) I48.0
[2022-09-25] MEDS ORDERED: MIDAZOLAM HCL 1 MG/ML 2ML VIAL ONE ×2 (13:49→14:47)
[2022-09-25] MEDS ORDERED: niCARdipine HCL INJ 2.5 MG/ML 10 ML AMP ONE (13:49)
[2022-09-25] MEDS ORDERED: fentaNYL citrate 100 MCG/2 ML VIAL ONE (13:49)
[2022-09-25] MEDS ORDERED: HEPARIN (PORCINE) 1000 UNIT/ML 10 ML (CATH LAB USE ONLY) ONE (13:49)
[2022-09-25] MEDS ORDERED: NITROGLYCERIN/D5W 100MCG/ML 20ML SYR ONE (13:50)
--- NOTE | 2022-09-25 15:23 | Pre Anesthesia Assessment ---
Date of Service September 25, 2022 Pre Sedation Assessment Vital Signs Temp Pulse Pulse Pulse Resp BP Pulse Ox 09/25/22 13:28 62 18 177/88 H 97 09/25/22 11:35 37.0 C 59 L 18 155/80 H 96 09/25/22 07:44 36.6 C 58 L 18 127/72 95 09/25/22 07:00 52 L 09/25/22 02:53 37.1 C 57 L 18 125/66 94 09/24/22 23:30 51 L 09/24/22 22:39 36.8 C 57 L 18 135/70 97 09/24/22 20:59 55 L 147/75 H 09/24/22 18:41 36.6 C 52 L 18 129/70 95 09/24/22 15:26 36.8 C 52 L 18 151/82 H 98 O2 Del Method 09/25/22 13:28 Room Air 09/25/22 11:35 Room Air 09/25/22 07:44 Room Air 09/25/22 07:00 09/25/22 02:53 Room Air 09/24/22 23:30 09/24/22 22:39 Room Air 09/24/22 20:59 09/24/22 18:41 Room Air 09/24/22 15:26 Room Air Cardiovascular RRR, no murmur, no edema Respiratory normal respiratory effort, lungs clear to auscultation Pre-Sedation Airway Assessment Smoking Status: Never smoker Short, Thick Neck: No Thyromental Distance: > or= 3.5 Finger Breadths Oral Cavity: + WNL Mallampati Class: II ASA: ASA3 NPO Status Date of Last Intake of Fluids: 09/25/22 Time of Last Intake of Fluids: 07:00 Date of Last Intake of Solid Food: 09/24/22 Notes The planned sedation has been discussed with the patient. Informed Consent was obtained. I have identified the patient, determined the appropriateness of sedation and have assessed the patient immediately prior to the procedure. All medicine(s) and interventions are by my order.
--- NOTE | 2022-09-25 15:25 | Post Anesthesia Assessment ---
Date of Service September 25, 2022 Post Sedation Assessment Vital Signs Temp Pulse Pulse Pulse Resp BP Pulse Ox 09/25/22 13:28 62 18 177/88 H 97 09/25/22 11:35 37.0 C 59 L 18 155/80 H 96 09/25/22 07:44 36.6 C 58 L 18 127/72 95 09/25/22 07:00 52 L 09/25/22 02:53 37.1 C 57 L 18 125/66 94 09/24/22 23:30 51 L 09/24/22 22:39 36.8 C 57 L 18 135/70 97 09/24/22 20:59 55 L 147/75 H 09/24/22 18:41 36.6 C 52 L 18 129/70 95 09/24/22 15:26 36.8 C 52 L 18 151/82 H 98 O2 Del Method 09/25/22 13:28 Room Air 09/25/22 11:35 Room Air 09/25/22 07:44 Room Air 09/25/22 07:00 09/25/22 02:53 Room Air 09/24/22 23:30 09/24/22 22:39 Room Air 09/24/22 20:59 09/24/22 18:41 Room Air 09/24/22 15:26 Room Air Recovery Score Activity: Moves 4 extremities Respiration: Deep Breath/Cough Circulation: +/-20% PreAnes Value Consciousness: Fully Awake Oxygen Saturation: > 92% On Room Air Discharge Sedation Level of Care: Phase I Post Sedation Plan On clinical assessment, the patient appears to have tolerated the sedation without complications. Patient is recovering as anticipated. Patient will continue to be monitored by nursing and may be discharged when sedation discharge criteria are met per below protocol. Upon Completions of procedure up to 15 minutes continue every 5 minute vital signs and the P.A.R. score; then discharge to a Phase I or Fast Track to Phase II per the following guidelines: * Discharge Patient to appropriate Phase II area if PAR is 8 or greater or return to pre- procedure baseline. The post - procedure orders will be as directed. * If PAR score is less than 8 or not return to pre-procedure baseline then patient will follow Phase I monitoring till PAR is reached for Phase II. The Phase I may be done in procedure room or may call to secure a Phase I area. * If naloxone or flumazenil are used for reversal, hold in Phase I for continued monitoring from when last reversal dose was given for a minimum of 60 minutes or longer pending the nurse and/or physician discretion of patient condition before discharge to Phase II. Please call the Sedation Physician to re-evaluate and complete post-note for discharge to Phase II area. Do NOT discharge from procedure sedation or Phase 1 until post- sedation evaluation note is complete by procedure /sedation MD Sedation Discharge Instructions to be given to the patient at discharge to home. [facility] [place] Procedure Codes (Charges) Indication for Procedure Indication for procedure: abnormal stress test Sedation/Anesthesia Procedure 1: Sedation/Anesthesia: 42544 Mod Sedation by the same physician;Init15 Min Child Age 5 & Up (Initial 15 minutes) Total Sedation Time (minutes): 70 Procedure 2: Sedation/Anesthesia: 81564 Mod Sedation by the same physician; Ea [id number] Minutes (Additional 55 minutes) Total Sedation Time (minutes): 70
--- NOTE | 2022-09-25 15:32 | Cardiac Catheterization ---
[facility] Data: Internal Medicine Veterinary Technician Cardiac Status Clinical evaluation leading to the procedure CAD Presenation: Sx unlikely to be ischemic Anginal Classification: No Symptoms Heart Failure: No Cardiogenic Shock within 24 Hours: No Cardiac Arrest within 24 Hours: No Imaging Studies Past 6 Months: Yes Stress Studies Past 6 Months: Yes Stress Echocardiogram: Yes - Indeterminant (Dobutamine induced nonsustained ventricular tachycardia. No wall motion abnormalities.) Coronary Anatomy Left Main (% Stenosis): Normal (Mild) LAD (% Stenosis): Proximal (Mild), Mid (Mild) and Distal (50%) D1 (% Stenosis): Normal D2 (% Stenosis): Normal Circumflex (% Stenosis): Ostial (40%), Proximal (Mild) and Mid (Mild) OM1 (% Stenosis): Normal OM2 (% Stenosis): Normal L PDA (% Stenosis): Ostial (50%) RCA (% Stenosis): Ostial (50 to 70% heavy calcification) and Mid (50 to 70%) R PL1 (% Stenosis): Normal (Diffuse mild) Diagnostic Physicians Name: Giovanny Tomlinson MD, PhD Closure Device Percutaneous Entry Location: Both Closure Device: Angio-Seal and Radial Band Recommendations: Medical Therapy and/or Counseling Intraprocedure Events Significant Disection: No Perforation: No Cardiac Cath Procedure Full Procedure Date September 25, 2022 Pre-Procedure Diagnosis Pre-Procedure Diagnosis: Arrhythmia AUC Score AUC Score: 07 Post-Procedure Diagnosis Post-Procedure Diagnosis: Moderate CAD Procedure(s) Performed Procedure(s) Performed: Coronary Angiography, Left Heart Cath and Ultrasound Guided Vascular Access Rack Room Worker Giovanny Tomlinson MD, PhD Estimated Blood Loss Estimated Blood Loss: 10 mL Medication(s) Medication(s): Fentanyl, Heparin, Lidocaine 1%, Nicardipine, Nitroglycerin and Versed Summary of Findings Brief description: Patient was brought to the cardiac catheterization suite where he was shaved and prepped in a sterile fashion. Sedated using IV Versed and fentanyl. Soft tissues of the right wrist were anesthetized using 2 mL of 1% Xylocaine. The right radial artery was accessed using a modified Seldinger technique and a 6 [place] radial artery glide sheath was placed. Patient was provided anticoagulation with IV heparin and antispasmodics including nicardipine and nitroglycerin. All catheters were advanced and exchanged over a 0.035 J-tip wire. Left coronary angiography was performed in orthogonal views with a 5 [place] JL 3.5 diagnostic catheter. Right coronary angiography was attempted with multiple catheters including a 5 [place] JR4, 5 [place] JR 5, 3 DRC, AR-1 modified, AL-1, and a multipurpose diagnostic catheter. However, we could not selectively engage the RCA because of a calcific lesion at the ostium as well as difficulty manipulating the catheter in the tortuous innominate artery. Therefore, decision was made to pro ceed with coronary angiography completion via the femoral artery approach. Soft tissues the right groin were anesthetized using 10 mL of 1% Xylocaine. Using the ultrasound for guidance (image saved), the right femoral artery was accessed and a 5 [place] femoral artery sheath was placed. A 5 [place] JR4 diagnostic catheter was then advanced over the J-wire and used to engage the right coronary artery. Multiple angiographic views of the right coronary system were obtained. Left heart pressure was measured with the 5 [place] JR4 diagnostic catheter. Diagnostic catheter was then removed. Limited right femoral artery angiography was performed to evaluate for closure. Findings were favorable, therefore, the femoral artery sheath was exchanged for a 6 [place] Angio-Seal closure device. This was deployed in the recommended fashion. We obtained immediate hemostasis and the patient remained hemodynamically stable. The radial artery sheath was then removed and hemostasis was obtained using a TR band. Patient was then returned to the recovery area. This ended the case. Coronary angiography findings: LMT: Large caliber. Trifurcates into LAD, circumflex, and ramus. Mild luminal irregularities. LAD: Large caliber and transapical wrapping the apex and providing distal inferior perfusion. Ostial to proximal vessel has moderate to severe calcified disease which is mild in severity less than 30% stenosis. He gives a small first diagonal. The mid LAD has mild diffuse disease giving a small to medium caliber second diagonal. Just after this the early distal LAD has a hazy calcified lesion of 40 to 50%. The remainder of the LAD has mild to moderate scattered disease. LCx: Large caliber and likely codominant. There is an ostial focal stenosis of 40%. Proximal vessel has mild diffuse disease and mild calcification. It provides a small caliber OM1 and then a small caliber OM 2. After this AV groove vessel provides an atrial branch. As it traverses distally it becomes what appears to be a medium caliber multi branching PDA. The branches are small in caliber. The early portion of the PDA has diffuse disease up to 50% stenosis. RI: Large caliber and bifurcating vessel which reaches near the apex. Proximal segment with mild diffuse disease. The smaller branch has a proximal 50 to 60% stenosis with the larger branch having diffuse mild disease. RCA: Medium caliber and probably codominant or nondominant. Ostial to proximal moderate to severe calcification. There appears to be a 50 to 70% narrowing in this segment. Very difficult to engage a 5 [place]er catheter because of the relatively small caliber of the ostium. The mid RCA has diffuse disease with a focal 50 to 70% moderately calcified stenosis at the RV marginal branch. The distal RCA has diffuse mild disease and appears to become a posterolateral branch of medium caliber plus or minus a small caliber PDA. This distal segment has diffuse mild disease and at the very end of the branches there is severe disease. Summary: 1. Diffuse angiographically mild to moderate multivessel coronary disease as described. 2. Guideline directed medical therapy for secondary prevention of coronary artery disease. Monitor carefully for worsening symptoms of angina or dyspnea on exertion. 3. If patient's symptoms progress then repeat coronary angiography and consider IFR analysis of the angiographically borderline lesions plus or minus PCI at that time. Plan was discussed with Dr. Foster (inpatient csm consultant) who is in agreement. Patient will follow-up with his regular barrel assembler helper after discharge. Hemodynamics Rest Ao:: 135/75 mmHg, mean 82 mmHg Final Ao: 166/82 mmHg, mean 116 mmHg LV: 158 over 11 mmHg, LVEDP 15 mmHg Recommendations Recommendations: Medical Therapy and/or Counseling Radiation Exposure (mGy) 3206 mGy, fluoroscopy time 22.8 minutes Contrast (mls) 183 mL Anesthesia 2 mg IV Versed, 100 mcg IV fentanyl Procedural Complication(s) None Disposition Recovery Room\PACU I attest to the content of the Intraoperative Record and any orders documented therein. Any exceptions are noted below. [facility] [place] Cath Procedure Codes Cardiac Catheterization Procedure 1: Cardiovascular Cath Procedures: 14174 Coronaries and LHC (+/-LV) Therapeutic Services & Ancillary Procedure 1: Cardiovascular Tx and Anc Procedures: 44331 Ultrasonic Guidance Vascular Access Moderate Sedation Procedure 1: Sedation/Anesthesia: 37658 Mod Sedation by the same physician;Init15 Min Child Age 5 & Up (Initial 15 min (total 70 min)) Procedure 2: Sedation/Anesthesia: 49866 Mod Sedation by the same physician; Ea [id number] Minutes (Additional 55 min (total 70 min)) PG Care Time/CCT Total # of Minutes Spent Total Time Spent with Patient: Total time spent is greater than 50% in coordination of care (as documented) at patient's floor/unit and/or counseling patient:
[2022-09-25] MEDS: SODIUM CHLORIDE 0.9% 1000ML 1,000 ML IV SCH (16:39)
[2022-09-25] MEDS ORDERED: hydrALAZINE HCL 20 MG/ML VIAL IV STA ×2 (16:42→18:28)
[2022-09-25] MEDS ORDERED: ACETAMINOPHEN 325 MG TAB PO PRN (18:02)
[2022-09-25] MEDS ORDERED: MoRPHine SULFATE 2 MG/ML CARP IV STA (18:34)
[2022-09-25] MEDS ORDERED: Nursing to Pharmacy Communication SCH (19:00)
--- NOTE | 2022-09-25 19:24 | CT Scan Report ---
HEAD CT NONCONTRAST CT DOSE: 614.27 mGy.cm HISTORY: Headache TECHNIQUE: Multiaxial CT images of the head were performed without the use of intravenous contrast. A utomated exposure control was utilized for this study. A dose lowering technique was utilized adheri ng to the principles of ALARA. Comparison: None. Findings: Small retention cyst within the left maxillary sinus. The mastoid air cells are clear. Ther e is residual contrast within the brain from the recent cardiac catheterization. This results in subo ptimal evaluation for intracranial hemorrhage. Small focus of encephalomalacia within the right occip ital lobe consistent with an old infarct. Mild atrophy and microvascular ischemic changes are noted. There is no definite mass, hematoma, midline shift, acute infarct. Impression: 1. No definite acute intracranial abnormality. 2. Old right occipital infarct. ACT 112: Negative or not required by law. Electronically signed by: Nahid Mora M.D. 09/25/2022 7:23 PM
[2022-09-25] MEDS ORDERED: ONDANSETRON INJ 2 MG/ML 2 ML VIAL IV PRN (19:41)
[2022-09-25] MEDS ORDERED: metFORMIN HCL ER 500 MG TABCR PO SCH (21:00)
[2022-09-25] MEDS ORDERED: DOXYCYCLINE HYCLATE 100 MG CAP PO SCH (21:00)
[2022-09-25] MEDS ORDERED: METOCLOPRAMIDE HCL INJ 5 MG/ML 2 ML VIAL IM STA (21:20)
[2022-09-26] MEDS: SODIUM CHLORIDE 0.9% 1000ML 1,000 ML IV SCH (06:17)
[2022-09-26 07:05] LABS: Hematocrit (blood only) 36.4 % (42.0-52.0); Hemoglobin 12.5 g/dl (14.0-18.0); Mean Corpuscular Hemoglobin 31.6 pg (25.0-34.0); Mean Corpuscular Hgb Conc 34.3 g/dL (32.0-36.0); Mean Corpuscular Volume 92.2 fL (80.0-100.0); Mean Platelet Volume 10.1 fL (9.4-12.4); Platelet Count 129 K/uL (130-400); RDW Coefficient of Variation 13.3 % (11.5-14.5); RDW Standard Deviation 45.1 fL (36.4-46.3); Red Blood Count 3.95 M/uL (4.70-6.10); White Blood Count 4.38 K/ul (4.8-10.8)
[2022-09-26 07:17] LABS: Calcium 8.6 mg/dl (8.5-10.1); Potassium 3.9 mmol/L (3.5-5.1)
[2022-09-26 07:21] LABS: Basophils # (auto) 0.02 K/uL (0-0.2); Basophils % (auto) 0.5 %; Eosinophils # (auto) 0.03 K/uL (0-0.50); Eosinophils % (auto) 0.7 %; Lymphocytes # (auto) 0.86 K/uL (1.2-3.4); Lymphocytes % (auto) 19.6 %; Monocytes # (auto) 0.56 K/uL (0.11-0.59); Monocytes % (auto) 12.8 %; Neutrophils # (auto) 2.91 K/uL (1.40-6.50); Neutrophils % (auto) 66.4 %
[2022-09-26 07:22] LABS: BUN Creatinine Ratio 15.9 (10-20); Creatinine Clr Calc Pharmacy 54.7 ml/min; Est GFR (African American) 64.7 ml/min; Est GFR (Non-African American) 55.8 ml/min
[2022-09-26] MEDS: lisinopril 10 MG TAB PO SCH (08:45)
[2022-09-26] MEDS: carvediloL 3.125 MG TAB PO SCH (08:45)
[2022-09-26] MEDS: INSULIN ASPART PER UNIT SC SCH ×2 (08:47→12:31)
--- NOTE | 2022-09-26 11:27 | Discharge Summary ---
Date of Service September 26, 2022 Admission HPI Per Admitting Provider Oren is a 76 year old male with a PMH significant for paroxysmal afib on eliquis, HTN, hyperlipidemia, intolerance to statins, DM II, prostate cancer in 2002, and PVD who presented to the [facility] ED on 09/23/22 for ZHONG/chest discomfort on exertion. In the ED the patient was found to be afebrile, hemodynamically stable and stable on RA. Labs were remarkable for a CBC with WBC of 3.70, stable Hgb of 12.9, cr of 1.28 (appears to be his baseline), chloride of 109 otherwise stable electrolytes, AG of 2, initial high sensitivity trop of 5.3 and covid negative. Chest xray was read as "No acute cardiopulmonary findings.". At the time of the exam the patient was resting in bed in no acute distress. He states over the past few weeks he has started to noticed an odd feeling in his chest with exertion. It's difficult for him to explain but he states it feels the same as when he had a stress echo completed years ago. He describes it as almost a warm sensation and stays in the substernal region, it does not radiate. He states that the sedation resolves with rest and has not occurred at rest. He follows with Dr. Quintero and called to schedule an appointment at the [place] office yesterday. There was a miscommunication and the appointment was in [place] so he was unable to make it. He states that he had a stress echo "years ago" but denies any previous heart attacks or previous stent placements. When asked why he was placed on Doxycycline he states that he started to experience a sore throat, a white growth on the right side of his tongue, and swollen "glands" in the submandibular region. He went to the acute care center in [place] where he had a negative strep test. They started him on the Doxycycline at that time and he feels as though his symptoms has slightly improved since then. He denies recent fevers, chills, changes in vision, hearing, taste, and smell, current chest pain, SOB, cough, abdominal pain, nausea, vomiting, dysuria, hematuria, and recent trauma. We discussed code atus, he wishes to be a full code. He would want his to make decisions for him if he could not make them himself. Please refer to Dr. Laureano's attestation for any changes to the treatment plan. Principal Diagnosis Noncardiac chest pain, stress test induced to ventricular tachycardia Discharge Exam General-alert and oriented x3, no fevers, no chills HEENT-head atraumatic and normocephalic, pupils equal and reactive to light, extraocular muscles intact Neck-no lymphadenopathy or thyromegaly, trachea midline Chest-clear to auscultation percussion. No rales wheezing or rhonchi Cardiac-regular rate and rhythm, normal S1 and S2 Abdomen-normal bowel sounds, nontender, no hepatosplenomegaly Extremities-no cyanosis, clubbing, or edema Neuro-cranial nerves II through XII intact, motor and sensory function within normal limits, strength symmetrical , no focal deficits Psych-normal affect, normal mood Discharge Data Allergies Allergy/AdvReac Type Severity Reaction Status Date / Time Penicillins Allergy Intermediate jaundice Verified 09/23/22 17:40 latex Allergy Mild ITCHY IF Verified 09/23/22 17:40 POWDER GLOVES ARE USED - rash Consultations 09/23/22 18:41 ED Decision to Admit Stat 09/23/22 20:23 Consult Cardiology Routine Procedures Performed Operation Date: 09/25/22 14:00 Actual Procedures p Cineradiography w/Routine Exam - Giovanny Tomlinson MD, PhD p Cath, Left with Cors and Vent - Giovanny Tomlinson MD, PhD s Ultrasound Vascular Access - Giovanny Tomlinson MD, PhD Ordered Studies 09/25/22 08:15 CL Cath Imgs for PACS use only Routine 09/25/22 19:[address] [CT head/brain wo con] Stat Hospital Course (1) Crescendo angina: Ruled out. Noncritical coronary disease noted on left heart catheterization. His chest pain appears to be of noncardiac etiology. No recurrent ventricular tachycardia since this occurred during stress testing. Appreciate cardiology consultation and recommendations. He had sustained ventricular tachycardia during stress testing on September 24. No recurrence since that time. Monitored with telemetry while hospitalized. Continue current medical management (2) Tongue abnormality: We will need continued outpatient evaluation and follow-up (3) Diabetes mellitus: ADA diet. Basal insulin therapy. Sliding scale coverage as needed (4) Elevated serum cholesterol: Statin therapy (5) Peripheral vascular disease: No intervention at this time. Continue current medical management (6) Chronic anticoagulation: He takes Eliquis chronically. Held for heart catheterization but will be restarted at discharge (7) Statin intolerance: Aware. Low-cholesterol diet (8) PAF (paroxysmal atrial fibrillation): Continue current medical management. Eliquis held for heart catheterization and will be restarted at discharge (9) Headache: Occurred after heart catheterization. Stat head CT scan negative for any bleeding. He had some nausea and vomiting transiently after the intravenous morphine that was administered last evening but now is asymptomatic Plan Discharge to home today, September 26 Total Time Total Time Spent Total Time Spent (In Minutes): 35 minutes Discharge Plan Discharge Items Patient Disposition: Home - Self-Care Reason For Visit: CHEST PAIN Discharge Diagnosis: Noncardiac chest pain, stress test induced ventricular tachycardia Activity: Resume your previous activity Non-emergency contact: Primary Care Provider Call non-emergency contact if: you have any medication questions and your symptoms worsen Follow-up/Referrals: Lissett Portillo PA-C [Primary Care Provider] - Diet: Carb Consistent or DM2 and Heart Healthy Addtl Attending Provider Instructions: No new medications at this time Pending Studies at Discharge: No Stand-Alone Forms: My [facility] [employer], Smoking Cessation Medications and DC Order Prescriptions: Continued Eliquis 5 mg tablet 5 mg PO BID Qty: 180 3RF doxycycline hyclate 100 mg capsule 100 mg PO BID Rx Instructions: STARTED 09/19/22 FOR 10 DAYS. carvedilol 3.125 mg tablet 3.125 mg PO BID lisinopril 10 mg tablet 10 mg PO DAILY metformin 500 mg tablet extended release 24 hr 500 mg PO BID Discharge Orders: Discharge Order (Routine); Ordered 09/26/22 Ordered By: Eugene Smith Admission Data Admit Date/Time: 09/23/22 19:18 Attending Provider: Eugene Smith Admit Provider: Joselyn Laureano Primary Care Provider: Lissett Portillo Other Providers: Joselyn Laureano ; Miguel Valadez ; Arjun Foster ; Mekhi Quintero ; Giovanny Tomlinson ; Kashmir Cadena ; Grady Johnson Jr ; Larry Mcclellan ; Autumn Welch ; Lexus Pal ; Ross Gaines ; Felipe Acosta ; Eugene Robles ; Patria Rico ; Akilah Vickers ; Maurizio Eldridge ; Georgi Keita ; Abiel Harris ; Giovanny Monroy V. Coding Level of Care Code HOSP INP/OBS DISCH >30 MIN Diagnoses Crescendo angina I20.0 Tongue abnormality Q38.3 Diabetes mellitus E11.9 Elevated serum cholesterol E78.9 Peripheral vascular disease I73.9 Chronic anticoagulation Z79.01 Statin intolerance Z78.9 PAF (paroxysmal atrial fibrillation) I48.0 Headache R51.9
[2022-09-26 11:30] VITALS: BP 147/74; TEMP 98.4; O2SAT 96
[2022-09-26 11:54] VITALS: PULSE 58
== END 2022-09-26 12:38 | disposition home or self-care (01) ==
LOC: 2W 15:11 → ED 15:11 → SUATTDRO 19:18 → 2W 22:18 → 2S 09-25 15:31

== ENCOUNTER 2025-07-18 14:34 | Observation (INO) ==
--- NOTE | 2025-07-18 15:09 | Emergency Department Note ---
Impression & Plan Chest pain, CAD, multiple vessel, Shortness of breath ED Provider Note NAME: YESI GOLDEN AGE: 79 SEX: M : 1945 ARRIVES VIA: Walk-In INFORMANT: Patient ED PROVIDER(S): Rico Dawson DO CHIEF COMPLAINT: Chest pain HPI: Patient is a 79-year-old male who presents to the ER with a past medical history of PAF, Type 2 Diabetes Mellitus, Hypertension, Dyslipidemia, PAD, Carotid Stenosis, CKD, BPPV, and Multivessel CAD, who underwent cardiac cath on 04/21/2025 and was later catheter [facility] on 05/06/2025 where he had complex PCI of the RCA including rotational Atherectomy, Shockwave Lithotripsy, Deployment of 3 SHAN in the Distal, Mid, and Proximal RCA (2.5 x 38 mm, 2.5 x 38 mm, and 2.75 x 22 mm Adel Drug Eluting Stents). His procedure was complicated by a laceration of the LV resulting in a pericardial effusion with tamponade physiology which required pericardiocentesis followed by a pericardial window. He presents today for 3 days worth of left-sided exertional chest pain associated with some shortness of breath. It resolves with rest. He does not have it now. Called his PCP and was referred in. ADDITIONAL HISTORY OBTAINED: Per HPI Chronic Medical/Social Conditions Affecting Care: Per HPI PAST MEDICAL HISTORY:See Below PAST SURGICAL HISTORY:See Below FAMILY HISTORY:See Below SOCIAL HISTORY:See Below HOME MEDICATIONS:See Below ALLERGIES:See Below VITALS:See Below PHYSICAL EXAMINATION: GENERAL: Sitting up in bed, alert, well appearing, well nourished, no distress, non-toxic EYE EXAM: normal conjunctiva. OROPHARYNX: no exudate, no erythema, lips, buccal mucosa, and tongue normal and mucous membranes are moist NECK: supple, no nuchal rigidity, no adenopathy, non-tender LUNGS: Clear to auscultation. Normal chest wall mechanics HEART: no murmurs, S1 normal and S2 normal ABDOMEN: abdomen soft, non-tender, normo-active bowel sounds, no masses, no rebound or guarding. UPPER EXTREMITIES: upper extremities are grossly normal. LOWER EXTREMITIES: No pitting edema. Calves are equal bilaterally NEURO EXAM: Normal sensorium, cranial nerves II-XII grossly intact, normal speech, no gross weakness of arms, no gross weakness of legs. MEDICAL DECISION MAKING: Patient is a 79-year-old male who presents ER for exertional chest pain over the past 3 days. IV was established and blood work is obtained. Labs show no significant leukocytosis. No anemia. BMP along LFTs bilirubin and troponin was negative. Lipase was normal. At rest he has no pain. He still will get a pleuritic pain with taking a deep breath. Bedside ultrasound showed no pericardial effusion as it was difficult to get a clear window. Discussed case with the hospitalist for further evaluation management treatment. Patient was given aspirin. Contact cardiology at the request of hospitalist and they recommended echo in the morning. Consults/Care Managements Discussions: Per [facility] Triage Nursing notes reviewed. Limited review of prior medical records performed Vital Signs: reviewed and remarkable for no significant abnormalities Differential diagnosis: Cardiac ischemia, aortic dissection, pulmonary embolism, pneumothorax, pneumonia, pericarditis, myocarditis, esophageal rupture, GERD, cholecystitis, pancreatitis, musculoskeletal, as well as other pathologies. ER treatment provided: See below Diagnostics interpreted by me include EKG and cardiac monitoring as listed below: -Cardiac Monitoring: An order was placed for continuous cardiac monitoring. The monitor shows a rate of 80 with sinus rhythm. -ECG: Sinus rhythm rate of 91 Normal axis Right bundle branch block QTc 504 -Laboratory studies:Interpreted by me as stated above in MDM and shown below. Imaging studies: Xrays: As interpreted by me: Portable AP upright 1 view of the chest shows no focal Lutrate CTs show: none Procedures:none Critical Care: None Past Med/Surg History Problem List (Updated 07/18/25 @ 17:05 by Rico Dawson DO) Shortness of breath (Acute) Chest pain (Acute) S/P pericardial window creation Hypertension S/P right coronary artery (RCA) stent placement Chest pressure PAF (paroxysmal atrial fibrillation) Vertigo Fatigue Edema Dyslipidemia CAD, multiple vessel (Acute) Headache Chest pain syndrome ZHONG (dyspnea on exertion) (Acute) Tongue abnormality Encounter for pre-operative examination Erectile dysfunction Chronic renal insufficiency Carotid stenosis last ultrasound approx 8 years ago [facility] Medical History (Updated 07/18/25 @ 17:05 by Rico Dawson DO) Unstable angina Orthostatic hypotension Burning chest pain Orthostatic lightheadedness Hyperlipidemia Osteoarthritis Spinal stenosis DM type 2 (diabetes mellitus, type 2) History of prostate cancer dx 5-7 years ago; sx + radiation Atrial fibrillation follows with Dr. Quintero; on Eliquis Statin intolerance Chronic anticoagulation with coumadin Peripheral vascular disease Elevated serum cholesterol Diabetes mellitus Surgical History (Updated 06/26/25 @ 12:14 by Miguel Valadez PA-C) History of right cataract extraction History of cardiac cath > 10 years ago - [facility] - no stents History of right hip replacement History of open reduction and internal fixation (ORIF) procedure LLE History of prostate biopsy History of lumbar surgery History of colonoscopy History of prostatectomy History of cholecystectomy History of left hip replacement History of left knee replacement Family History Other No family history of adverse response to anesthesia Social History Smoking Status: Never smoker Second Hand Exposure: No; Do You Dip or Chew Tobacco: No; Hx Alcohol Use: No Hx Substance Use: No Preferred Language: Sami Communication Ability: Effective [employer] Shift Required: No Beliefs That Will Affect Care: None Current Living Situation: Spouse Current Living Situation Comment: with Feels Safe at Home: Yes Assistive Devices: None Allergies Allergies Allergy/AdvReac Type Severity Reaction Status Date / Time Penicillins Allergy Intermediate jaundice Verified 07/18/25 16:41 latex Allergy Mild ITCHY IF Verified 07/18/25 16:41 POWDER GLOVES ARE USED - rash Home Meds Home Medications Medication Instructions Recorded Confirmed clopidogrel 75 mg tablet (Plavix) 75 mg PO QAM 05/15/25 07/18/25 rosuvastatin 5 mg tablet 5 mg PO QAM 05/15/25 07/18/25 carvedilol 3.125 mg tablet 3.125 mg PO BID 07/03/25 07/18/25 torsemide 10 mg tablet 10 mg PO QAM 07/03/25 07/18/25 dapagliflozin propanediol 5 mg 5 mg PO QAM 07/18/25 07/18/25 tablet (Farxiga) metformin 500 mg tablet,extended 500 mg PO AMPM 07/18/25 07/18/25 release 24 hr Previous Rx's Medication Instructions Recorded apixaban 5 mg tablet (Eliquis) 5 mg PO BID #180 tabs 06/27/22 Results & Data (ED) Vital Signs Vital Signs - 24 hr 07/18/25 14:35 07/18/25 14:47 07/18/25 14:48 Temperature 36.6 C Temperature Source Temporal Artery Scan Pulse Rate 72 80 90 Pulse Rate [Apical] Pulse Rate from SpO2 Sensor 73 Respiratory Rate 18 14 Respiratory Effort / Characteristics Respiratory Depth Respiratory Pattern Blood Pressure 155/91 H Blood Pressure [Right Arm] Blood Pressure Mean 112 Blood Pressure Mean [Right Arm] Blood Pressure Position [Right Arm] Pulse Oximetry 99 98 Oxygen Delivery Method Sepsis Recent Fever Within 48 Hours No Sepsis New/Unexplained Change in Mental Status N/A Sepsis Action Taken by Nursing No Action Required 07/18/25 14:51 07/18/25 15:00 07/18/25 15:00 Temperature Temperature Source Pulse Rate 79 73 Pulse Rate [Apical] Pulse Rate from SpO2 Sensor 75 70 Respiratory Rate 20 20 Respiratory Effort / Characteristics Respiratory Depth Respiratory Pattern Blood Pressure 120/78 Blood Pressure [Right Arm] Blood Pressure Mean 98 Blood Pressure Mean [Right Arm] Blood Pressure Position [Right Arm] Pulse Oximetry 98 98 Oxygen Delivery Method Sepsis Recent Fever Within 48 Hours Sepsis New/Unexplained Change in Mental Status Sepsis Action Taken by Nursing 07/18/25 15:00 07/18/25 15:00 07/18/25 15:00 Temperature Temperature Source Pulse Rate Pulse Rate [Apical] Pulse Rate from SpO2 Sensor Respiratory Rate Respiratory Effort / Characteristics Respiratory Depth Respiratory Pattern Blood Pressure 120/78 120/78 120/78 Blood Pressure [Right Arm] Blood Pressure Mean 98 98 98 Blood Pressure Mean [Right Arm] Blood Pressure Position [Right Arm] Pulse Oximetry Oxygen Delivery Method Sepsis Recent Fever Within 48 Hours Sepsis New/Unexplained Change in Mental Status Sepsis Action Taken by Nursing 07/18/25 15:00 07/18/25 15:02 07/18/25 15:04 Temperature Temperature Source Pulse Rate Pulse Rate [Apical] 74 Pulse Rate from SpO2 Sensor Respiratory Rate 13 Respiratory Effort / Characteristics Non-Labored Spontaneous Respiratory Depth Normal Respiratory Pattern Regular Blood Pressure 120/78 Blood Pressure [Right Arm] 120/78 Blood Pressure Mean 98 Blood Pressure Mean [Right Arm] 92 Blood Pressure Position [Right Arm] Semi-fowlers Pulse Oximetry 98 98 Oxygen Delivery Method Room Air Room Air Sepsis Recent Fever Within 48 Hours Sepsis New/Unexplained Change in Mental Status Sepsis Action Taken by Nursing 07/18/25 15:12 07/18/25 15:21 07/18/25 15:30 Temperature Temperature Source Pulse Rate 78 79 Pulse Rate [Apical] Pulse Rate from SpO2 Sensor 77 67 Respiratory Rate 16 16 Respiratory Effort / Characteristics Respiratory Depth Respiratory Pattern Blood Pressure Blood Pressure [Right Arm] 128/72 Blood Pressure Mean Blood Pressure Mean [Right Arm] 90 Blood Pressure Position [Right Arm] Semi-fowlers Pulse Oximetry 97 97 Oxygen Delivery Method Sepsis Recent Fever Within 48 Hours Sepsis New/Unexplained Change in Mental Status Sepsis Action Taken by Nursing 07/18/25 15:30 07/18/25 15:30 07/18/25 15:30 Temperature Temperature Source Pulse Rate 77 Pulse Rate [Apical] Pulse Rate from SpO2 Sensor 55 L Respiratory Rate 16 Respiratory Effort / Characteristics Respiratory Depth Respiratory Pattern Blood Pressure 128/72 128/72 Blood Pressure [Right Arm] Blood Pressure Mean 96 96 Blood Pressure Mean [Right Arm] Blood Pressure Position [Right Arm] Pulse Oximetry 97 Oxygen Delivery Method Sepsis Recent Fever Within 48 Hours Sepsis New/Unexplained Change in Mental Status Sepsis Action Taken by Nursing 07/18/25 15:30 07/18/25 15:30 07/18/25 15:30 Temperature Temperature Source Pulse Rate Pulse Rate [Apical] Pulse Rate from SpO2 Sensor Respiratory Rate Respiratory Effort / Characteristics Respiratory Depth Respiratory Pattern Blood Pressure 128/72 128/72 128/72 Blood Pressure [Right Arm] Blood Pressure Mean 96 96 96 Blood Pressure Mean [Right Arm] Blood Pressure Position [Right Arm] Pulse Oximetry Oxygen Delivery Method Sepsis Recent Fever Within 48 Hours Sepsis New/Unexplained Change in Mental Status Sepsis Action Taken by Nursing 07/18/25 15:42 07/18/25 15:51 07/18/25 15:58 Temperature Temperature Source Pulse Rate 81 78 Pulse Rate [Apical] 80 Pulse Rate from SpO2 Sensor 69 66 Respiratory Rate 18 17 16 Respiratory Effort / Characteristics Non-Labored Spontaneous Respiratory Depth Normal Respiratory Pattern Regular Blood Pressure Blood Pressure [Right Arm] Blood Pressure Mean Blood Pressure Mean [Right Arm] Blood Pressure Position [Right Arm] Pulse Oximetry 99 97 98 Oxygen Delivery Method Room Air Sepsis Recent Fever Within 48 Hours Sepsis New/Unexplained Change in Mental Status Sepsis Action Taken by Nursing 07/18/25 16:00 07/18/25 16:00 07/18/25 16:00 Temperature Temperature Source Pulse Rate Pulse Rate [Apical] Pulse Rate from SpO2 Sensor Respiratory Rate Respiratory Effort / Characteristics Respiratory Depth Respiratory Pattern Blood Pressure 139/84 139/84 139/84 Blood Pressure [Right Arm] Blood Pressure Mean 112 112 112 Blood Pressure Mean [Right Arm] Blood Pressure Position [Right Arm] Pulse Oximetry Oxygen Delivery Method Sepsis Recent Fever Within 48 Hours Sepsis New/Unexplained Change in Mental Status Sepsis Action Taken by Nursing 07/18/25 16:00 07/18/25 16:00 07/18/25 16:00 Temperature Temperature Source Pulse Rate 79 Pulse Rate [Apical] Pulse Rate from SpO2 Sensor 72 Respiratory Rate 16 Respiratory Effort / Characteristics Respiratory Depth Respiratory Pattern Blood Pressure 139/84 139/84 Blood Pressure [Right Arm] Blood Pressure Mean 112 112 Blood Pressure Mean [Right Arm] Blood Pressure Position [Right Arm] Pulse Oximetry 99 Oxygen Delivery Method Sepsis Recent Fever Within 48 Hours Sepsis New/Unexplained Change in Mental Status Sepsis Action Taken by Nursing 07/18/25 16:12 07/18/25 16:21 Temperature Temperature Source Pulse Rate 68 75 Pulse Rate [Apical] Pulse Rate from SpO2 Sensor 66 Respiratory Rate 16 23 Respiratory Effort / Characteristics Respiratory Depth Respiratory Pattern Blood Pressure Blood Pressure [Right Arm] Blood Pressure Mean Blood Pressure Mean [Right Arm] Blood Pressure Position [Right Arm] Pulse Oximetry 97 Oxygen Delivery Method Sepsis Recent Fever Within 48 Hours Sepsis New/Unexplained Change in Mental Status Sepsis Action Taken by Nursing Laboratory Data 07/18/25 14:55 07/18/25 14:55 Lab Results 07/18/25 Range/Units 14:55 WBC 5.69 (4.8-10.8) K/ul RBC 4.13 L (4.70-6.10) M/uL Hgb 12.5 L (14.0-18.0) g/dL Hct 38.6 L (42.0-52.0) % MCV 93.5 (80.0-100.0) fL MCH 30.3 (25.0-34.0) pg MCHC 32.4 (32.0-36.0) g/dL RDW Std Deviation 45.3 (36.4-46.3) fL RDW Coeff of Raf 13.3 (11.5-14.5) % Plt Count 177 (130-400) K/uL MPV 9.8 (9.4-12.4) fL Immature Gran % (Auto) 0.2 % Neut % (Auto) 50.6 % Lymph % (Auto) 31.8 % Freestone % (Auto) 12.5 % Eos % (Auto) 4.2 % Baso % (Auto) 0.7 % Neut # (Auto) 2.88 (1.40-6.50) K/uL Lymph # (Auto) 1.81 (1.20-3.40) K/uL Freestone # (Auto) 0.71 H (0.11-0.59) K/uL Eos # (Auto) 0.24 (0.00-0.50) K/uL Baso # (Auto) 0.04 (0.00-0.20) K/uL Immature Gran # (Auto) 0.01 (0.01-0.20) K/uL Sodium 139 (136-145) mmol/L Potassium 3.8 (3.5-5.1) mmol/L Chloride 106 (98-107) mmol/L Carbon Dioxide 25 (21-32) mmol/L Anion Gap 8 (3-11) BUN 23 (6-23) mg/dl Creatinine 1.42 H (0.6-1.4) mg/dl Est Cr Clr Drug Dosing 45.2 ml/min eGFR 50.89 BUN/Creatinine Ratio 16.2 (10-20) Glucose 99 (70-99(Fasting)) mg/dl Calcium 9.3 (8.6-10.3) mg/dl Total Bilirubin 0.7 (0.2-1.0) mg/dl AST 15 (13-39) U/L ALT 9 (7-52) U/L Alkaline Phosphatase 79 (34-104) U/L Troponin I High Sens 6.9 (0-20) pg/ml Total Protein 7.7 (6.0-8.3) gm/dl Albumin 4.3 (3.4-5.0) gm/dl Globulin 3.4 (2.5-4.0) gm/dl Albumin/Globulin Ratio 1.3 (0.9-2) Lipase 63 (11-82) U/L Administered Medications Discontinued Medications Aspirin (Aspirin Chew 324 Mg) 324 mg PO NOW STA Stop: 07/18/25 15:42 Last Admin: 07/18/25 16:01 Dose: 324 mg Documented By: MEENU Ketorolac Tromethamine (Ketorolac Tromethamine 15 Mg/Ml Vial) 10 mg IV NOW ONE Stop: 07/18/25 15:43 Last Admin: 07/18/25 15:59 Dose: Not Given Documented By: CAP Imaging Data Radiologist's Impression: Chest X-Ray 07/18/25 14:58 XR chest 1V portable CLINICAL HISTORY: Chest pain, nonspecific COMPARISON STUDY: 07/03/2025 FINDINGS: The heart is mildly enlarged. There is no failure. There is no focal pulmonary consolidation. There are no pleural effusions. There are old right- sided rib fractures. IMPRESSION: No active disease in the chest. ACT 112: Negative or not required by law. Electronically signed by: Nba Reese M.D. 07/18/2025 3:22 PM Discharge Plan Visit Data Chief Complaint: Referred by Doctor Stated Complaint: DOC SENT TO CHECK IF FLUID WAS AROUND HEART ED Provider: Rico Dawson Discharge Problem: Chest pain, CAD, multiple vessel, Shortness of breath Condition: Fair Forms Stand Alone Forms: [facility] [employer] Prescriptions Prescriptions: No Action Eliquis 5 mg tablet 5 mg PO BID Qty: 180 3RF Hold Instructions: Resume on 04/19/25. clopidogrel [Plavix] 75 mg tablet 75 mg PO QAM rosuvastatin 5 mg tablet 5 mg PO QAM torsemide 10 mg tablet 10 mg PO QAM carvedilol 3.125 mg tablet 3.125 mg PO BID metformin 500 mg tablet extended release 24 hr 500 mg PO AMPM dapagliflozin propanediol [Farxiga] 5 mg tablet 5 mg PO QAM Referrals Referrals: PCP,NO [Physician] - Discharge Problem: Chest pain Qualifiers: Chest pain type: unspecified Qualified Code(s): R07.9 - Chest pain, unspecified
[2025-07-18 15:11] LABS: Hematocrit (blood only) 38.6 % (42.0-52.0); Hemoglobin 12.5 g/dL (14.0-18.0); Immature Granulocytes # (auto) 0.01 K/uL (0.01-0.20); Immature Granulocytes % (auto) 0.2 %; Mean Corpuscular Hemoglobin 30.3 pg (25.0-34.0); Mean Corpuscular Volume 93.5 fL (80.0-100.0); Platelet Count 177 K/uL (130-400); RDW Standard Deviation 45.3 fL (36.4-46.3); Red Blood Count 4.13 M/uL (4.70-6.10); White Blood Count 5.69 K/ul (4.8-10.8)
--- NOTE | 2025-07-18 15:24 | XRay Report ---
XR chest 1V portable CLINICAL HISTORY: Chest pain, nonspecific COMPARISON STUDY: 07/03/2025 FINDINGS: The heart is mildly enlarged. There is no failure. There is no focal pulmonary consolidatio n. There are no pleural effusions. There are old right-sided rib fractures. IMPRESSION: No active disease in the chest. ACT 112: Negative or not required by law. Electronically signed by: Nba Reese M.D. 07/18/2025 3:22 PM
[2025-07-18 15:30] LABS: Alanine Aminotransferase 9.0 U/L (7-52); Albumin Globulin Ratio 1.3 (0.9-2); Albumin Level 4.3 gm/dl (3.4-5.0); Alkaline Phosphatase 79.0 U/L (34-104); Anion Gap 8.0 (3-11); Bilirubin,Total 0.7 mg/dl (0.2-1.0); Blood Urea Nitrogen 23.0 mg/dl (6-23); Calcium 9.3 mg/dl (8.6-10.3); Carbon Dioxide 25.0 mmol/L (21-32); Chloride 106.0 mmol/L (98-107); Creatinine Clr Calc Pharmacy 45.2 ml/min; Globulin 3.4 gm/dl (2.5-4.0); Glucose 99.0 mg/dl (70-99(Fasting)); Lipase 63.0 U/L (11-82); Potassium 3.8 mmol/L (3.5-5.1); Sodium 139.0 mmol/L (136-145); Total Protein 7.7 gm/dl (6.0-8.3)
--- NOTE | 2025-07-18 15:53 | Electrocardiogram Report ---
Test Reason : Blood Pressure : */* mmHG Vent. Rate : 91 BPM Atrial Rate : 91 BPM P-R Int : 154 ms QRS Dur : 134 ms QT Int : 410 ms P-R-T Axes : 38 42 -15 degrees QTcB Int : 504 ms Sinus rhythm with Premature atrial complexes and Premature ventricular complexes Right bundle branch block Abnormal ECG When compared with ECG of 03-Jul-2025 14:21, Premature ventricular complexes are now Present Premature atrial complexes are now Present Confirmed by Mekhi Quintero ([id number]) on 07/18/2025 3:53:05 PM Referred By: Confirmed By: Mekhi Quintero
[2025-07-18] MEDS: KETOROLAC TROMETHAMINE 15 MG/ML VIAL IV ONE (15:59)
[2025-07-18] MEDS: ASPIRIN CHEW 324 MG PO STA (16:00)
--- NOTE | 2025-07-18 17:22 | History & Physical Report ---
Date of Service July 18, 2025 Assessment & Plan (1) Chest pain: (2) Shortness of breath: Plan This patient is a 79-year-old male with a history of multivessel CAD s/p high risk/complex PCI/SHAN x 3 in 04/2025 which was complicated by laceration of LV resulting in pericardial effusion with tamponade requiring pericardiocentesis and pericardial window, PAF on apixaban, DM 2, HTN, chronic HFpEF, RBBB, HLD, PAD, NOAH, CKD stage III, and BPPV who presents with 3 days of left-sided chest pain that was worse with movement like trying to get in and out of bed, along with a burning sensation in his chest with taking a deep breath. He was seen in the ED on 07/03 for more severe burning in the chest radiating to both sides of the neck and was put on colchicine for a 7-day course which he reports resolved his pain completely. He then was moving 50-70 pound tree stumps and burning t hem about 3 or 4 days ago and shortly afterwards, the above symptoms started. He reports perhaps a mild intermittent cough that is nonproductive. No fevers or chills. He did have some yellow discharge from his nose but reports frequent sinus issues. The pain on the left side of the chest was sharp in nature like a pinch and is now completely resolved. His ECG showed PACs and PVCs and a sinus rhythm, with no ischemic changes. He was given a dose of Toradol and a dose of aspirin in case of pericarditis. He will be admitted for chest pain. #Chest pain/severe CAD/history of cardiac tamponade-troponin initially negative and D-dimer added on which was negative. With recent exposure to burning and heavy lifting. This could be musculoskeletal with a component of bronchial irritation. Has been on Eliquis so unlikely to have PE and D-dimer negative. Also could have pericarditis given that pain from 2 weeks ago went away with colchicine. Alternatively, could be GERD - Admit to PCU for telemetry monitoring - Check formal echo - Check serial troponin, BNP,ESR, CRP - Consult cardiology for further opinion - Consider starting colchicine however this does not seem to be pericarditis - Tylenol as needed for mild pain and IV morphine for more severe chest pain - Start Voltaren gel 4 times daily to chest wall - Trial IV Pepcid 20 mg twice daily in case of GI issues - Give trial of albuterol nebulizer to see if improves any bronchospastic quality although no wheezing on exam - Continue home Eliquis, carvedilol, Plavix, rosuvastatin #Paroxysmal atrial fibrillation/RBBB-in sinus rhythm here with frequent PACs and PVCs - Continue home carvedilol, Eliquis - Monitor on telemetry #Chronic HFpEF/HLD/NOAH/PAD-does not appear to have volume overload. CXR without significant findings of heart failure. His weight is actually down from previous. Heart rates are controlled and blood pressures are normal - Check BNP - Continue home carvedilol, Farxiga, torsemide - Low-sodium diet, daily weights, strict I's and O's #DM2-no recent HgbA1c in the system. Only takes metformin at home - BSGs AC and at bedtime - Diabetic diet - NovoLog supplemental insulin for now - Hold home metformin -Check HgbA1c in the a.m. #CKD stage III-creatinine around baseline at 1.4 - Renally dose medications and avoid nephrotoxins - Follow BMP in the a.m. #Normocytic anemia-Hgb mildly low at 12.5 and stable from previous - Check B12, folate, iron studies, TSH in the a.m. DVT prophylaxis-Eliquis Disposition-admit to PCU History of Present Illness Chief Complaint: Chest pain Primary Care Provider: Jacky Evans PA-C This patient is a 79-year-old male with a history of multivessel CAD s/p high risk/complex PCI/SHAN x 3 in 04/2025 which was complicated by laceration of LV resulting in pericardial effusion with tamponade requiring pericardiocentesis and pericardial window, PAF on apixaban, DM 2, HTN, chronic HFpEF, RBBB, HLD, PAD, NOAH, CKD stage III, and BPPV who presents with 3 days of left-sided chest pain that was worse with movement like trying to get in and out of bed, along with a burning sensation in his chest with taking a deep breath. He was seen in the ED on 07/03 for more severe burning in the chest radiating to both sides of the neck and was put on colchicine for a 7-day course which he reports resolved his pain completely. He then was moving 50-70 pound tree stumps and burning them about 3 or 4 days ago and shortly afterwards, the above symptoms started. He reports perhaps a mild intermittent cough that is nonproductive. No fevers or chills. He did have some yellow discharge from his nose but reports frequent sinus issues. The pain on the left side of the chest was sharp in nature like a pinch and is now completely resolved. In the ED, he had labs were fairly unremarkable including a negative troponin. He had a bedside ultrasound which showed no pericardial effusion as per ED physician. Cardiology was contacted by the ED who recommended admission to this facility with a routine formal echocardiogram to be performed. His ECG showed PACs and PVCs and a sinus rhythm, with no ischemic changes. He was given a dose of Toradol and a dose of aspirin in case of pericarditis. He will be admitted for chest pain. Allergies Allergy/AdvReac Type Severity Reaction Status Date / Time Penicillins Allergy Intermediate jaundice Verified 07/18/25 16:41 latex Allergy Mild ITCHY IF Verified 07/18/25 16:41 POWDER GLOVES ARE USED - rash Home Medications Medication Instructions Recorded Confirmed Type apixaban 5 mg tablet (Eliquis) 5 mg PO BID #180 tabs 06/27/22 07/18/25 Rx clopidogrel 75 mg tablet (Plavix) 75 mg PO QAM 05/15/25 07/18/25 History rosuvastatin 5 mg tablet 5 mg PO QAM 05/15/25 07/18/25 History carvedilol 3.125 mg tablet 3.125 mg PO BID 07/03/25 07/18/25 History torsemide 10 mg tablet 10 mg PO QAM 07/03/25 07/18/25 History dapagliflozin propanediol 5 mg 5 mg PO QAM 07/18/25 07/18/25 History tablet (Farxiga) metformin 500 mg tablet,extended 500 mg PO AMPM 07/18/25 07/18/25 History release 24 hr Past Med/Surg History Problem List Shortness of breath (Acute) Chest pain (Acute) S/P pericardial window creation Hypertension S/P right coronary artery (RCA) stent placement Chest pressure PAF (paroxysmal atrial fibrillation) Vertigo Fatigue Edema Dyslipidemia CAD, multiple vessel (Acute) Headache Chest pain syndrome ZHONG (dyspnea on exertion) (Acute) Tongue abnormality Encounter for pre-operative examination Erectile dysfunction Chronic renal insufficiency Carotid stenosis last ultrasound approx 8 years ago [facility] Medical History Unstable angina Orthostatic hypotension Burning chest pain Orthostatic lightheadedness Hyperlipidemia Osteoarthritis Spinal stenosis DM type 2 (diabetes mellitus, type 2) History of prostate cancer dx 5-7 years ago; sx + radiation Atrial fibrillation follows with Dr. Quintero; on Eliquis Statin intolerance Chronic anticoagulation with coumadin Peripheral vascular disease Elevated serum cholesterol Diabetes mellitus Surgical History History of right cataract extraction History of cardiac cath > 10 years ago - [facility] - no stents History of right hip replacement History of open reduction and internal fixation (ORIF) procedure LLE History of prostate biopsy History of lumbar surgery History of colonoscopy History of prostatectomy History of cholecystectomy History of left hip replacement History of left knee replacement Family History Other No family history of adverse response to anesthesia Social History Smoking Status: Former smoker Second Hand Exposure: No; Do You Dip or Chew Tobacco: No; Hx Alcohol Use: No Hx Substance Use: No Preferred Language: Samoan Communication Ability: Effective Case Specialist Required: No Beliefs That Will Affect Care: None Current Living Situation: Spouse Current Living Situation Comment: with Feels Safe at Home: Yes Safety Concerns: Feels Safe At This Time Assistive Devices: Cane Review of Systems Review of Systems: All systems reviewed & are unremarkable except as noted in HPI & below Physical Exam Constitutional: WD/WN, vitals as above Eyes: PERRL, conjunctivae normal, anicteric sclerae ENMT: external ear and nose normal, oropharynx normal Neck: trachea midline, no thyromegaly Respiratory: normal respiratory effort, lungs clear to auscultation Cardiovascular: RRR, no murmur, no edema Chest (Breasts): Chest: normal inspection of chest Additional Comments: No tenderness to palpation over sternum or left anterior chest wall Gastrointestinal (Abdomen): normal bowel sounds, soft, nontender, no hepatosplenomegaly Musculoskeletal: Extremities: extremities normal to inspection; no cyanosis and no clubbing Skin: no rashes, warm and dry Neurologic: moves all extremities and awake; no focal motor deficits Psychiatric: A+Ox3, euthymic affect Lymphatic: no lymphedema Results & Data Results & Data Vital Signs (Past 12 Hours) Vital Signs Temp Pulse Pulse Resp BP BP Pulse Ox 07/18/25 17:00 71 16 127/79 99 07/18/25 16:21 75 23 07/18/25 16:12 68 16 97 07/18/25 16:00 79 16 99 07/18/25 16:00 139/84 07/18/25 16:00 139/84 07/18/25 16:00 139/84 07/18/25 16:00 139/84 07/18/25 16:00 139/84 07/18/25 15:58 80 16 98 07/18/25 15:51 78 17 97 07/18/25 15:42 81 18 99 07/18/25 15:30 128/72 07/18/25 15:30 128/72 07/18/25 15:30 128/72 07/18/25 15:30 128/72 07/18/25 15:30 128/72 07/18/25 15:30 77 16 97 07/18/25 15:30 128/72 07/18/25 15:21 79 16 97 07/18/25 15:12 78 16 97 07/18/25 15:04 74 13 120/78 98 07/18/25 15:02 98 07/18/25 15:00 120/78 07/18/25 15:00 120/78 07/18/25 15:00 120/78 07/18/25 15:00 120/78 07/18/25 15:00 120/78 07/18/25 15:00 73 20 98 07/18/25 14:51 79 20 98 07/18/25 14:48 90 14 98 07/18/25 14:47 80 07/18/25 14:35 36.6 C 72 18 155/91 H 99 O2 Del Method 07/18/25 17:00 Room Air 07/18/25 16:21 07/18/25 16:12 07/18/25 16:00 07/18/25 16:00 07/18/25 16:00 07/18/25 16:00 07/18/25 16:00 07/18/25 16:00 07/18/25 15:58 Room Air 07/18/25 15:51 07/18/25 15:42 07/18/25 15:30 07/18/25 15:30 07/18/25 15:30 07/18/25 15:30 07/18/25 15:30 07/18/25 15:30 07/18/25 15:30 07/18/25 15:21 07/18/25 15:12 07/18/25 15:04 Room Air 07/18/25 15:02 Room Air 07/18/25 15:00 07/18/25 15:00 07/18/25 15:00 07/18/25 15:00 07/18/25 15:00 07/18/25 15:00 07/18/25 14:51 07/18/25 14:48 07/18/25 14:47 07/18/25 14:35 Laboratory Results CBC, CMP, troponin, lipase reviewed Diagnostic Findings CXR reviewed ECG Additional Comments: ECG on 07/18/2025 at 1443 with sinus rhythm with PACs and PVCs, rate 91, RBBB, with some subtle T wave abnormalities in inferior leads similar to previous Code Status & VTE Plan Code Status DNR/DNI VTE Prophylaxis Plan VTE Prophylaxis will be ordered: Yes PG Care Time/CCT Total # of Minutes Spent Total Time Spent with Patient: Total time spent is greater than 50% in coordination of care (as documented) at patient's floor/unit and/or counseling patient: Coding Level of Care Code 05504 INT INP/OBS CARE 3/75MIN Diagnoses Chest pain R07.9 Chest pain type: unspecified Shortness of breath R06.02 (1) Chest pain Chest pain type: unspecified Qualified Code(s): R07.9 - Chest pain, unspecified
[2025-07-18 19:34] VITALS: RESP 18
[2025-07-18] MEDS ORDERED: ONDANSETRON INJ 2 MG/ML 2 ML VIAL IV PRN (19:46)
[2025-07-18] MEDS ORDERED: GLUCAGON FOR INJ 1 MG VIAL SQ PRN (19:46)
[2025-07-18] MEDS ORDERED: GLUCOSE 10 TAB/TUBE PO PRN (19:46)
[2025-07-18] MEDS ORDERED: GLUCOSE 40% GEL 15 GM TUBE PO PRN (19:46)
[2025-07-18] MEDS ORDERED: MoRPHine SULFATE 2 MG/ML CARP IV PRN (19:46)
[2025-07-18] MEDS ORDERED: POLYETHYLENE (MIRALAX) 17 GM PACK PO PRN (19:46)
[2025-07-18] MEDS ORDERED: ACETAMINOPHEN 325 MG TAB PO PRN (19:46)
[2025-07-18] MEDS ORDERED: NITROGLYCERIN SL 0.4 MG/TAB TAB SL PRN (19:46)
[2025-07-18] MEDS ORDERED: DEXTROSE 50% 50 ML SYRINGE IV PRN (19:46)
[2025-07-18] MEDS ORDERED: CARBOHYDRATES FOR HYPOGLYCEMIA PO PRN (19:46)
[2025-07-18] MEDS ORDERED: ALBUTEROL 0.083% NEBU SOLN 3 ML VIAL NEB PRN (20:26)
[2025-07-18] MEDS: ALBUTEROL 0.083% NEBU SOLN 3 ML VIAL NEB STA (20:36)
[2025-07-18] MEDS: INSULIN ASPART PER UNIT CHARGE SC SCH (21:02)
[2025-07-18] MEDS: APIXABAN 5 MG TABLET PO SCH (21:03)
[2025-07-18] MEDS: FAMOTIDINE 20MG IV PUSH 20 MG/5 ML SYR IV SCH (21:03)
[2025-07-18] MEDS: DICLOFENAC SOD 1% GEL 100 GM TUBE EXT SCH (22:14)
[2025-07-19 06:13] LABS: Hematocrit (blood only) 36.4 % (42.0-52.0); Hemoglobin 11.9 g/dL (14.0-18.0); Immature Granulocytes # (auto) 0.01 K/uL (0.01-0.20); Immature Granulocytes % (auto) 0.2 %; Mean Corpuscular Hemoglobin 30.6 pg (25.0-34.0); Mean Corpuscular Volume 93.6 fL (80.0-100.0); Platelet Count 156 K/uL (130-400); RDW Standard Deviation 45.3 fL (36.4-46.3); Red Blood Count 3.89 M/uL (4.70-6.10); White Blood Count 4.61 K/ul (4.8-10.8)
[2025-07-19 06:36] LABS: Anion Gap 6.0 (3-11); Blood Urea Nitrogen 20.0 mg/dl (6-23); Calcium 9.1 mg/dl (8.6-10.3); Carbon Dioxide 26.0 mmol/L (21-32); Chloride 108.0 mmol/L (98-107); Cholesterol 122.0 mg/dl (0-200); Creatinine Clr Calc Pharmacy 48.7 ml/min; Glucose 120.0 mg/dl (70-99(Fasting)); HDL Cholesterol 36.0 mg/dl; Iron 46.0 mcg/dl (35-175); Magnesium 2.1 mg/dl (1.7-2.4); Potassium 4.4 mmol/L (3.5-5.1); Sodium 140.0 mmol/L (136-145); Total Iron Binding Cap Calc 291.0 mcg/dl (250-450); Transferrin 208.0 mg/dl (200-360); Transferrin (FE) Percent Satur 16.0 % (20-50); Triglycerides 113.0 mg/dl (0-150)
[2025-07-19 06:52] LABS: Thyroid Stimulating Hormone 1.597 uIu/ml (0.300-4.500)
[2025-07-19 06:58] LABS: Ferritin 53.2 ng/ml (8-388); Folate (Folic Acid),Ser orPlas > 22.30 ng/ml (>5.38)
[2025-07-19 06:59] LABS: Vitamin B12 361 pg/ml (180-914)
[2025-07-19] MEDS: ROSUVASTATIN CALCIUM 5 MG TAB PO SCH (08:29)
[2025-07-19] MEDS: TORSEMIDE 10 MG TAB PO SCH (08:29)
[2025-07-19] MEDS: CLOPIDOGREL BISULFATE 75 MG TAB PO SCH (08:29)
--- NOTE | 2025-07-19 09:19 | XCELERA ---
[id number] \\[id number]
--- NOTE | 2025-07-19 09:56 | Cardiology Consultation ---
Date of Consultation July 19, 2025 Assessment & Plan (1) Chest pain: (2) S/P pericardial window creation: (3) CAD, multiple vessel: (4) S/P right coronary artery (RCA) stent placement: (5) PAF (paroxysmal atrial fibrillation): (6) Dyslipidemia: Plan Mr. Mariee is a 79 year old male with a history of PAF, Type 2 Diabetes Mellitus, Hypertension, Dyslipidemia (intolerant of Pravastatin), PAD, Carotid Stenosis, CKD, BPPV, and Multivessel CAD s/p Complex PCI of the RCA including Rotational Atherectomy, Shockwave Lithotripsy, Deployment of 3 SHAN in the Distal, Mid, and Proximal RCA (2.5 x 38 mm, 2.5 x 38 mm, and 2.75 x 22 mm [facility] Eluting Stents) 05/10/25 complicated by a laceration of the LV resulting in a pericardial effusion with tamponade physiology which required pericardiocentesis followed by a pericardial window 05/11/25 who was admitted on 07/18/25 with Chest Pain. Patient presented with 3 days of left-sided chest pain that was worse with movement like trying to get in and out of bed, along with a burning sensation in his chest with taking a deep breath. He was seen at [facility] ER on 07/03/25 for more severe burning in the chest radiating to both sides of the neck and was put on Colchicine for a 7-day course which he reports resolved his pain completely. He then was moving 50-70 pound tree stumps and burning them about 3 or 4 days ago and shortly afterwards, the above symptoms started. He reports perhaps a mild intermittent cough that is nonproductive. No fevers or chills. He specifically denies any exertional chest pain or chest burning/warmth (his historical anginal equivalent). He denies any exertional neck, jaw, back, or arm pain. He denies any shortness of breath at rest, unusual dyspnea on exertion, orthopnea, or PND. He denies any palpitations, syncope, or near- syncope. Patient has not had any focal neurologic symptoms suggestive of stroke or mini stroke. Thus far, his high sensitivity Troponin I levels have been unremarkable, EKG shows no acute changes, cardiac technician shows sinus rhythm, and his echocardiogram shows normal LV systolic function, normal LV wall motion, and no evidence of a pericardial effusion. His ESR and CRP are both elevated which is consistent with an inflammatory process. I suspect he has irritation/inflammation s/p median sternotomy/pericardial window 05/11/25 from doing too much strenuous manual labor just 2 months and a few days out from that procedure. This does not appear to be a cardiac issue or event. Recommend the followin. Begin Colchicine 0.6 mg b.i.d. until he develops loose stools, then take Colchicine 0.6 mg daily. Recommend treating him for a minimum of 3 months before tapering off of Colchicine. 2. Continue Carvedilol 3.125 mg b.i.d.. 3. Continue Eliquis 5 mg b.i.d.. 4. Continue Plavix 75 mg daily. 5. Continue Farxiga 5 mg daily. 6. Continue Rosuvastatin 5 mg daily. 7. Continue Torsemide 10 mg daily. 8. Patient is stable for discharge to home today. Thank you for asking us to see Mr. Mariee in consultation. History of Present Illness Reason for Consultation: -- Chest Pain. Requesting Physician: Pamela Hernández MD Attending Physician: Mekhi Quintero MD History of Present Illness Mr. Mariee is a 79 year old male with a history of PAF, Type 2 Diabetes Mellitus, Hypertension, Dyslipidemia (intolerant of Pravastatin), PAD, Carotid Stenosis, CKD, BPPV, and Multivessel CAD s/p Complex PCI of the RCA including Rotational Atherectomy, Shockwave Lithotripsy, Deployment of 3 SHAN in the Distal, Mid, and Proximal RCA (2.5 x 38 mm, 2.5 x 38 mm, and 2.75 x 22 mm [facility] Eluting Stents) 05/10/25 complicated by a laceration of the LV resulting in a pericardial effusion with tamponade physiology which required pericardiocentesis followed by a pericardial window 05/11/25 who was admitted on 07/18/25 with Chest Pain. Patient presented with 3 days of left-sided chest pain that was worse with movement like trying to get in and out of bed, along with a burning sensation in his chest with taking a deep breath. He was seen at [facility] ER on 07/03/25 for more severe burning in the chest radiating to both sides of the neck and was put on Colchicine for a 7-day course which he reports resolved his pain completely. He then was moving 50-70 pound tree stumps and burning them about 3 or 4 days ago and shortly afterwards, the above symptoms started. He reports perhaps a mild intermittent cough that is nonproductive. No fevers or chills. He specifically denies any exertional chest pain or chest burning/warmth (his historical anginal equivalent). He denies any exertional neck, jaw, back, or arm pain. He denies any shortness of breath at rest, unusual dyspnea on exertion, orthopnea or PND. He denies any palpitations, syncope, or near- syncope. Patient has not had any focal neurologic symptoms suggestive of stroke or mini stroke. Thus far, his high sensitivity Troponin I levels have been unremarkable, EKG shows no acute changes, cardiac technician shows sinus rhythm, and his echocardiogram shows normal LV systolic function, normal LV wall motion, and no evidence of a pericardial effusion. His ESR and CRP are both elevated which is consistent with an inflammatory process. He is compliant with his medications. Allergies Allergy/AdvReac Type Severity Reaction Status Date / Time Penicillins Allergy Intermediate jaundice Verified 07/18/25 16:41 latex Allergy Mild ITCHY IF Verified 07/18/25 16:41 POWDER GLOVES ARE USED - rash Home Medications Medication Instructions Recorded Confirmed Type apixaban 5 mg tablet (Eliquis) 5 mg PO BID #180 tabs 06/27/22 07/18/25 Rx clopidogrel 75 mg tablet (Plavix) 75 mg PO QAM 05/15/25 07/18/25 History rosuvastatin 5 mg tablet 5 mg PO QAM 05/15/25 07/18/25 History carvedilol 3.125 mg tablet 3.125 mg PO BID 07/03/25 07/18/25 History torsemide 10 mg tablet 10 mg PO QAM 07/03/25 07/18/25 History dapagliflozin propanediol 5 mg 5 mg PO QAM 07/18/25 07/18/25 History tablet (Farxiga) metformin 500 mg tablet,extended 500 mg PO AMPM 07/18/25 07/18/25 History release 24 hr Patient History Medical History Unstable angina Orthostatic hypotension Burning chest pain Orthostatic lightheadedness Hyperlipidemia Osteoarthritis Spinal stenosis DM type 2 (diabetes mellitus, type 2) History of prostate cancer dx 5-7 years ago; sx + radiation Atrial fibrillation follows with Dr. Quintero; on Eliquis Statin intolerance Chronic anticoagulation with coumadin Peripheral vascular disease Elevated serum cholesterol Diabetes mellitus Surgical History History of right cataract extraction History of cardiac cath > 10 years ago - [facility] - no stents History of right hip replacement History of open reduction and internal fixation (ORIF) procedure LLE History of prostate biopsy History of lumbar surgery History of colonoscopy History of prostatectomy History of cholecystectomy History of left hip replacement History of left knee replacement Family History Other No family history of adverse response to anesthesia Social History Smoking Status: Former smoker Second Hand Exposure: No; Do You Dip or Chew Tobacco: No; Hx Alcohol Use: No Hx Substance Use: No Preferred Language: [place]er Communication Ability: Effective Cheese Sprayer Required: No Beliefs That Will Affect Care: None Current Living Situation: Spouse Current Living Situation Comment: with Feels Safe at Home: Yes Safety Concerns: Feels Safe At This Time Assistive Devices: Cane Review of Systems Review of Systems: -- As per HPI. Physical Exam Physical Exam: Blood pressure is 126/68, pulse 68 and regular. GENERAL: Patient in no acute distress. HEENT: Head is atraumatic, normocephalic. EOM's intact. No perioral cyanosis. NECK: No JVD. JVP is not elevated. Carotid upstrokes are + 2 bilaterally. No bruits. CHEST/LUNGS: Clear to auscultation throughout all lung crowder. No wheezes, rales, or crackles. Good air movement. CVS: S1 and S2 are regular without murmurs, gallops, or rubs. PMI is nonpalpable. No lifts, heaves, or thrills. Median sternotomy scar is present. EXTREMITIES: No clubbing or cyanosis or edema. Intact radial pulses bilaterally. NEUROLOGIC EXAM: Patient is awake, alert, and oriented. Pleasant and co operative. Answers questions appropriately. Speech is clear. Results & Data Vital Signs (Past 12 Hours) Vital Signs Temp Pulse Resp BP Pulse Ox O2 Del Method 07/19/25 07:14 36.8 C 67 126/68 95 Room Air 07/19/25 03:08 36.7 C 59 L 18 147/78 H 97 Room Air 07/18/25 23:22 36.7 C 66 18 117/63 98 Room Air Laboratory Results Laboratory Results - last 24 hr 07/18/25 07/18/25 07/18/25 14:50 14:55 19:50 WBC 5.69 RBC 4.13 L Hgb 12.5 L Hct 38.6 L MCV 93.5 MCH 30.3 MCHC 32.4 RDW Std Deviation 45.3 RDW Coeff of Raf 13.3 Plt Count 177 MPV 9.8 Immature Gran % (Auto) 0.2 Neut % (Auto) 50.6 Lymph % (Auto) 31.8 [place] % (Auto) 12.5 Eos % (Auto) 4.2 Baso % (Auto) 0.7 Neut # (Auto) 2.88 Lymph # (Auto) 1.81 [place] # (Auto) 0.71 H Eos # (Auto) 0.24 Baso # (Auto) 0.04 Immature Gran # (Auto) 0.01 ESR 25 H D-Dimer 330 Sodium 139 Potassium 3.8 Chloride 106 Carbon Dioxide 25 Anion Gap 8 BUN 23 Creatinine 1.42 H Est Cr Clr Drug Dosing 45.2 eGFR 50.89 BUN/Creatinine Ratio 16.2 Glucose 99 POC Glucose Estimat Average Glucose Hemoglobin A1c Calcium 9.3 Magnesium Iron TIBC Transferrin Transferrin % Sat Ferritin Total Bilirubin 0.7 AST 15 ALT 9 Alkaline Phosphatase 79 Troponin I High Sens 6.9 7.4 C-Reactive Protein 4.12 H B-Natriuretic Peptide 62 Total Protein 7.7 Albumin 4.3 Globulin 3.4 Albumin/Globulin Ratio 1.3 Triglycerides Cholesterol LDL Cholesterol, Calc VLDL Cholesterol, Calc HDL Cholesterol Cholesterol/HDL Ratio Lipase 63 Vitamin B12 Folate TSH 07/18/25 07/18/25 07/19/25 20:13 23:12 05:45 WBC 4.61 L RBC 3.89 L Hgb 11.9 L Hct 36.4 L MCV 93.6 MCH 30.6 MCHC 32.7 RDW Std Deviation 45.3 RDW Coeff of Raf 13.3 Plt Count 156 MPV 9.5 Immature Gran % (Auto) 0.2 Neut % (Auto) 60.0 Lymph % (Auto) 23.9 [place] % (Auto) 11.5 Eos % (Auto) 3.7 Baso % (Auto) 0.7 Neut # (Auto) 2.77 Lymph # (Auto) 1.10 L [place] # (Auto) 0.53 Eos # (Auto) 0.17 Baso # (Auto) 0.03 Immature Gran # (Auto) 0.01 ESR D-Dimer Sodium 140 Potassium 4.4 Chloride 108 H Carbon Dioxide 26 Anion Gap 6 BUN 20 Creatinine 1.31 Est Cr Clr Drug Dosing 48.7 eGFR 56.06 BUN/Creatinine Ratio 15.3 Glucose 120 H POC Glucose 100 H Estimat Average Glucose Pending Hemoglobin A1c Pending Calcium 9.1 Magnesium 2.1 Iron 46 TIBC 291 Transferrin 208 Transferrin % Sat 16 L Ferritin 53.2 Total Bilirubin AST ALT Alkaline Phosphatase Troponin I High Sens 7.4 6.6 C-Reactive Protein B-Natriuretic Peptide Total Protein Albumin Globulin Albumin/Globulin Ratio Triglycerides 113 Cholesterol 122 LDL Cholesterol, Calc 63 VLDL Cholesterol, Calc 23 HDL Cholesterol 36 Cholesterol/HDL Ratio 3.4 Lipase Vitamin B12 361 Folate > 22.30 TSH 1.597 07/19/25 07:12 WBC RBC Hgb Hct MCV MCH MCHC RDW Std Deviation RDW Coeff of Raf Plt Count MPV Immature Gran % (Auto) Neut % (Auto) Lymph % (Auto) [place] % (Auto) Eos % (Auto) Baso % (Auto) Neut # (Auto) Lymph # (Auto) [place] # (Auto) Eos # (Auto) Baso # (Auto) Immature Gran # (Auto) ESR D-Dimer Sodium Potassium Chloride Carbon Dioxide Anion Gap BUN Creatinine Est Cr Clr Drug Dosing eGFR BUN/Creatinine Ratio Glucose POC Glucose 114 H Estimat Average Glucose Hemoglobin A1c Calcium Magnesium Iron TIBC Transferrin Transferrin % Sat Ferritin Total Bilirubin AST ALT Alkaline Phosphatase Troponin I High Sens C-Reactive Protein B-Natriuretic Peptide Total Protein Albumin Globulin Albumin/Globulin Ratio Triglycerides Cholesterol LDL Cholesterol, Calc VLDL Cholesterol, Calc HDL Cholesterol Cholesterol/HDL Ratio Lipase Vitamin B12 Folate TSH Diagnostic Findings CXR 07/18/25: CLINICAL HISTORY: Chest pain, nonspecific COMPARISON STUDY: 07/03/2025 FINDINGS: The heart is mildly enlarged. There is no failure. There is no focal pulmonary consolidation. There are no pleural effusions. There are old right- sided rib fractures. IMPRESSION: No active disease in the chest. Medications Administered Medication List Apixaban (Apixaban 5 Mg Tablet) 5 mg PO BID [facility] Stop: 08/17/25 20:59 Last Admin: 07/19/25 08:28 Dose: 5 mg Documented By: Admin: 07/18/25 21:03 Dose: 5 mg Documented By: DOMINIC Carvedilol (Carvedilol 3.125 Mg Tab) 3.125 mg PO BID [facility] Stop: 08/17/25 20:59 Last Admin: 07/19/25 08:29 Dose: 3.125 mg Documented By: Admin: 07/18/25 21:03 Dose: 3.125 mg Documented By: DOMINIC Clopidogrel Bisulfate (Clopidogrel Bisulfate 75 Mg Tab) 75 mg PO QAM [facility] Stop: 08/18/25 08:59 Last Admin: 07/19/25 08:29 Dose: 75 mg Documented By: GENE Diclofenac Sodium (Diclofenac Sod 1% Gel 100 Gm Tube) 4 gm EXT QID [facility]; Protocol Stop: 08/17/25 20:59 Last Admin: 07/19/25 08:29 Dose: 4 gm Documented By: Admin: 07/18/25 22:14 Dose: 4 gm Documented By: DOMINIC Famotidine (Pepcid 20mg Iv Push) 20 mg in 5 mls @ 2.5 mls/min IV Q12H [facility] Stop: 08/17/25 20:29 Last Admin: 07/19/25 08:28 Dose: 2.5 mls/min Documented By: Admin: 07/18/25 21:03 Dose: 2.5 mls/min Documented By: DOMINIC Insulin Aspart (Insulin Aspart Per Unit Charge) 0 units SC ACHS [facility] Stop: 08/17/25 20:59 Last Admin: 07/19/25 08:22 Dose: Not Given Documented By: Admin: 07/18/25 21:02 Dose: Not Given Documented By: DOMINIC Miscellaneous (Dapagliflozin Propanediol [Farxiga] 5 Mg Tablet ~ Order Awaiting Action) 1 each N/A QS [facility] Stop: 08/18/25 00:00 Last Admin: 07/19/25 08:21 Dose: Not Given Documented By: Admin: 07/18/25 23:48 Dose: Not Given Documented By: DOMINIC Rosuvastatin Calcium (Rosuvastatin Calcium 5 Mg Tab) 5 mg PO QAM [facility] Stop: 08/18/25 08:59 Last Admin: 07/19/25 08:29 Dose: 5 mg Documented By: GENE Torsemide ([facility] 10 Mg Tab) [facility] Stop: 08/18/25 08:59 Last Admin: 07/19/25 08:29 Dose: 10 mg Documented By: GENE Discontinued Medications Albuterol (Albuterol 0.083% Nebu Soln 3 Ml Vial) 2.5 mg NEB NOW STA; Protocol Stop: 07/18/25 20:27 Last Admin: 07/18/25 20:36 Dose: 2.5 mg Documented By: INGA Aspirin (Aspirin Chew 324 Mg) 324 mg PO NOW STA Stop: 07/18/25 15:42 Last Admin: 07/18/25 16:01 Dose: 324 mg Documented By: MEENU Ketorolac Tromethamine (Ketorolac Tromethamine 15 Mg/Ml Vial) 10 mg IV NOW ONE Stop: 07/18/25 15:43 Last Admin: 07/18/25 15:59 Dose: Not Given Documented By: MEENU PG Care Time/CCT Total # of Minutes Spent Total Time Spent with Patient: Total time spent is greater than 50% in coordination of care (as documented) at patient's floor/unit and/or counseling patient:45 Coding [place] [address] INT INP/OBS CARE 2/55MIN Patient Type Established History Detailed Exam Detailed Medical Decision Making High Complexity Diagnoses Chest pain R07.9 Chest pain type: unspecified S/P pericardial window creation Z98.890 CAD, multiple vessel I25.10 S/P right coronary artery (RCA) stent placement Z95.5 PAF (paroxysmal atrial fibrillation) I48.0 Dyslipidemia E78.5 Time Spent (min) 62 (1) Chest pain Chest pain type: unspecified Qualified Code(s): R07.9 - Chest pain, unspecified
--- NOTE | 2025-07-19 10:35 | Electrocardiogram Report ---
Test Reason : Blood Pressure : */* mmHG Vent. Rate : 65 BPM Atrial Rate : 65 BPM P-R Int : 180 ms QRS Dur : 144 ms QT Int : 444 ms P-R-T Axes : 7 -12 -28 degrees QTcB Int : 461 ms Sinus rhythm with Premature atrial complexes Right bundle branch block Abnormal ECG When compared with ECG of 18-Jul-2025 14:43, Fusion complexes are no longer Present Premature ventricular complexes are no longer Present Confirmed by Mekhi Quintero ([id number]) on 07/19/2025 10:34:57 AM Referred By: Jacky Evans Confirmed By: Mekhi Quintero
[2025-07-19 11:19] VITALS: BP 119/63; PULSE 62; TEMP 98.4; O2SAT 96
[2025-07-19] MEDS: COLCHICINE 0.6 MG TAB PO ONE (12:31)
--- NOTE | 2025-07-19 12:59 | Discharge Summary ---
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 He was seen in the ED on 07/03 for more severe burning in the chest radiating to both sides of the neck and was put on colchicine for a 7-day course which he reports resolved his pain completely. He then was moving 50-70 pound tree stumps and burning them about 3 or 4 days ago and shortly afterwards, the above symptoms started. He reports perhaps a mild intermittent cough that is nonproductive. No fevers or chills. He did have some yellow discharge from his nose but reports frequent sinus issues. The pain on the left side of the chest was sharp in nature like a pinch and is now completely resolved. His ECG showed PACs and PVCs and a sinus rhythm, with no ischemic changes. He was admitted for chest pain. #Chest pain/severe CAD/history of cardiac tamponade-troponin negative x 3, D- dimer negative. With recent exposure to burning and heavy lifting. The left sided chest pain is likely musculoskeletal. The burning sensation in the middle of the chest that was worse with deep breathing did not really feel much better with albuterol nebulizer but was improved after receiving IV Pepcid. He also de scribed pain with eating bread and a piece of meat while in the hospital as it went down his chest. Suspect possible esophagitis. BNP negative and he was not volume overloaded. Lipid panel excellent. ESR and CRP were very minimally elevated, echocardiogram normal, but cardiology recommended resuming colchicine for 3-week course in case of residual pericardial inflammation. He had no significant telemetry events during admission and was improving. -Start colchicine 0.6 mg p.o. twice daily until loose stools and then decrease to 0.6 mg p.o. once daily-likely will complete a 3-month course - Follow-up with cardiology as an outpatient -Continue Voltaren gel 4 times daily to chest wall on left side at site of musculoskeletal pain-advised no heavy lifting -Start Protonix 40 mg p.o. once daily x 1 month in case of esophagitis/GERD as cause of central burning chest pain - Continue home Eliquis, carvedilol, Plavix, rosuvastatin #Paroxysmal atrial fibrillation/RBBB-in sinus rhythm here with frequent PACs and PVCs - Continue home carvedilol, Eliquis #Chronic HFpEF/HLD/NOAH/PAD-does not appear to have volume overload. CXR without significant findings of heart failure. His weight is actually down from previous. Heart rates are controlled and blood pressures are normal. BNP normal. - Continue home carvedilol, Farxiga, torsemide - Low-sodium diet #DM2-no recent HgbA1c in the system. Only takes metformin at home. HgbA1c still pending at the time of discharge - Diabetic diet -Resume home metformin -Follow with PCP #CKD stage III-creatinine around baseline at 1.3-1.4 - Renally dose medications and avoid nephrotoxins - Follow BMP as an outpatient #Normocytic anemia-Hgb mildly low at 12.5 and stable from previous. B12, folate, iron studies, TSH all normal here -Follow-up with PCP DVT prophylaxis-Eliquis Disposition-stable for discharge to home Notes For Next Care Provider Medication Changes From Visit Added colchicine 0.6 mg p.o. twice daily Added Protonix 40 mg p.o. once daily Admission HPI Per Admitting Provider This patient is a 79-year-old male with a history of multivessel CAD s/p high risk/complex PCI/SHAN x 3 in 04/2025 which was complicated by laceration of LV resulting in pericardial effusion with tamponade requiring pericardiocentesis and pericardial window, PAF on apixaban, DM 2, HTN, chronic HFpEF, RBBB, HLD, PAD, NOAH, CKD stage III, and BPPV who presents with 3 days of left-sided chest pain that was worse with movement like trying to get in and out of bed, along with a burning sensation in his chest with taking a deep breath. He was seen in the ED on 07/03 for more severe burning in the chest radiating to both sides of the neck and was put on colchicine for a 7-day course which he reports resolved his pain completely. He then was moving 50-70 pound tree stumps and burning them about 3 or 4 days ago and shortly afterwards, the above symptoms started. He reports perhaps a mild intermittent cough that is nonproductive. No fevers or chills. He did have some yellow discharge from his nose but reports frequent sinus issues. The pain on the left side of the chest was sharp in nature like a pinch and is now completely resolved. In the ED, he had labs were fairly unremarkable including a negative troponin. He had a bedside ultrasound which showed no pericardial effusion as per ED physician. Cardiology was contacted by the ED who recommended admission to this facility with a routine formal echocardiogram to be performed. His ECG showed PACs and PVCs and a sinus rhythm, with no ischemic changes. He was given a dose of Toradol and a dose of aspirin in case of pericarditis. He will be admitted for chest pain. Discharge Exam Constitutional WD/WN, vitals as above Neck trachea midline, no thyromegaly Respiratory normal respiratory effort, lungs clear to auscultation Cardiovascular RRR, no murmur, no edema Chest (Breasts) Chest: normal inspection of chest Gastrointestinal (Abdomen) normal bowel sounds, soft, nontender, no hepatosplenomegaly Musculoskeletal Extremities: extremities normal to inspection; no cyanosis and no clubbing Skin no rashes, warm and dry Neurologic moves all extremities and awake; no focal motor deficits Psychiatric A+Ox3, euthymic affect Lymphatic no lymphedema Discharge Plan Discharge Items Patient Disposition: Home - Self-Care Reason For Visit: CHEST PAIN Discharge Diagnosis: Left sided chest pain-secondary to muscular strain-resolved Central chest burning pain-secondary to either inflammation around the heart versus acid reflux Condition on Discharge: Good Activity: As commented below Lifting: No more than 10 pounds Lifting Comment: Refrain from lifting heavy objects until your symptoms are resolved Exercise/Sports: Gradually increase as tolerated Non-emergency contact: Primary Care Provider and Returned Goods Inspector Call non-emergency contact if: you have any medication questions and your symptoms worsen Follow-up/Referrals: Jacky Evans PA-C [Primary Care Provider] - (Follow-up within 1-2 weeks) Diet: Heart Healthy Addtl Attending Provider Instructions: You are admitted with chest pain. Fortunately, you were not having a heart attack and there is no fluid around your heart. You do not have any blood clots or pneumonia in the lungs. The left-sided chest pain is likely from muscular strain from heavy lifting. This seems to have resolved. The chest pressure and burning in the center of your chest may be related to some residual inflammation around the heart, but could also be from acid reflux. Please continue taking colchicine 0.6 mg by mouth twice a day until you start having loose stools, then reduce it to 0.6 mg by mouth once a day. You will likely stay on the colchicine for 3 months. Please follow-up with admissions gate attendant for this. Please also start taking Protonix 40 mg by mouth once daily in the morning to help with acid reflux. You can take this for 1 month and then stop. If your symptoms return, you may need to start back on the antacid. It was a pleasure taking care of you! If you have any questions about your care before your hospital follow-up visit with your primary care provider, please call [phone] and ask to be transferred to the [facility] [place] Medicine office. Sincerely, Pamela Hernández M.D. Pending Studies at Discharge: No Stand-Alone Forms: [facility], Smoking Cessation Medications and DC Order Prescriptions: New colchicine [Colcrys] 0.6 mg Tablet 0.6 mg PO BID Qty: 60 0RF pantoprazole [Protonix] 40 mg tablet,delayed release (DR/EC) 40 mg PO QAM Qty: 30 0RF diclofenac sodium [Voltaren Arthritis Pain] 1 % Gel 4 g EXT QID PRN (Reason: chest pain) Qty: 100 0RF Rx Instructions: Please give the tube from the hospital if possible Continued Eliquis 5 mg tablet 5 mg PO BID Qty: 180 3RF Hold Instructions: Resume on 04/19/25. clopidogrel [Plavix] 75 mg tablet 75 mg PO QAM rosuvastatin 5 mg tablet 5 mg PO QAM torsemide 10 mg tablet 10 mg PO QAM carvedilol 3.125 mg tablet 3.125 mg PO BID metformin 500 mg tablet extended release 24 hr 500 mg PO AMPM dapagliflozin propanediol [Farxiga] 5 mg tablet 5 mg PO QAM Discharge Orders: Discharge Order (Routine); Ordered 07/19/25 Ordered By: Pamela Hernández Admission Data Admit Date/Time: 07/18/25 17:46 Attending Provider: Pamela Hernández Admit Provider: Pamela Hernández Primary Care Provider: Jacky Evans Other Providers: Pamela Hernández; Mekhi Quintero Hospital Stay Data Consultations 07/18/25 16:06 ED Decision to Admit Stat 07/18/25 19:46 Consult Cardiology Routine Pending Results Patient Have Any Pending Studies at Discharge: No Discharge Instructions Given to Patient (Per Discharging Provider) You are admitted with chest pain. Fortunately, you were not having a heart attack and there is no fluid around your heart. You do not have any blood clots or pneumonia in the lungs. The left-sided chest pain is likely from muscular strain from heavy lifting. This seems to have resolved. The chest pressure and burning in the center of your chest may be related to some residual inflammation around the heart, but could also be from acid reflux. Please continue taking colchicine 0.6 mg by mouth twice a day until you start having loose stools, then reduce it to 0.6 mg by mouth once a day. You will likely stay on the colchicine for 3 months. Please follow-up with admissions gate attendant for this. Please also start taking Protonix 40 mg by mouth once daily in the morning to help with acid reflux. You can take this for 1 month and then stop. If your symptoms return, you may need to start back on the antacid. It was a pleasure taking care of you! If you have any questions about your care before your hospital follow-up visit with your primary care provider, please call [phone] and ask to be t ransferred to the [facility] [place] Medicine office. Sincerely, Pamela Hernández M.D. Total Time Total Time Spent Total Time Spent (In Minutes): 35 minutes Total Time Includes: Examination of the Patient, Discharge Planning and Medication Reconciliation Coding Level of Care Code 46334 INP/OBS DISCH >30 MIN Diagnoses Chest pain R07.9 Chest pain type: unspecified Shortness of breath R06.02
[2025-07-19 13:15] LABS: Hemoglobin A1C 6.0 % (4.5-5.6)
[2025-07-19] MEDS ORDERED: COLCHICINE 0.6 MG TAB PO SCH (21:00)
== END 2025-07-19 13:57 | disposition home or self-care (01) | DRG 313 ==
LOC: SUATTDRO → ED 14:34 → 4W 17:46 → INTOOBSV 17:46 → 4W 18:42